=== PATIENT | male | born 2000 | race Caucasian/White ===

== ENCOUNTER 2023-06-30 08:24 | Outpatient (OUT) | payer OTHER, SELFPAY ==
[2023-06-30 08:47] LABS: Basophils Absolute Auto 0.1 10^3/uL (0.0-0.1); Eosinophils Absolute Auto 0.6 10^3/uL (0.0-0.7); Eosinophils Percent Auto 6.9 % (0.9-7.0); Hematocrit 48.6 % (42.0-54.0); Immature Granulocytes Abs Auto 0.01 10^3/uL (0.00-0.03); Immature Granulocytes Pct Auto 0.1 % (0.0-0.5); Lymphocytes Percent Auto 33.7 % (20.5-60.0); Mean Corpuscular HGB Conc 32.9 g/dL (29.9-35.2); Mean Corpuscular Hemoglobin 27.3 pg (25.9-34.0); Mean Corpuscular Volume 82.8 fL (80.0-94.0); Monocytes Absolute Auto 0.6 10^3/uL (0.3-0.8); Monocytes Percent Auto 6.7 % (1.7-12.0); Neutrophils Absolute Auto 4.6 10^3/uL (1.4-6.5); Neutrophils Percent Auto 51.6 % (43.0-75.0); Platelet Count 309 10^3/uL (150-450); Red Blood Count 5.87 10^6/uL (4.70-6.10); Red Cell Distribution Width 13.2 % (11.0-15.0); White Blood Count 8.9 10^3/uL (4.0-11.0)
[2023-06-30 08:55] LABS: Bilirubin Urine NEGATIVE (NEGATIVE); Blood Urine NEGATIVE (NEGATIVE); Clarity Urine CLEAR (CLEAR); Color Urine YELLOW (YELLOW); Glucose Urine UA NEGATIVE (NEGATIVE); Ketones Urine NEGATIVE (NEGATIVE); Leukocyte Esterase Urine NEGATIVE (NEGATIVE); Nitrite Urine NEGATIVE (NEGATIVE); Protein Urine NEGATIVE (NEG/TRACE); Specific Gravity Urine >=1.030 (1.005-1.025); Urobilinogen Urine 0.2 EU/dL (0.2-1.0); pH Urine 5.5 (5.0-9.0)
[2023-06-30 09:33] LABS: Alanine Aminotransferase 128 U/L (16-63); Albumin Globulin Ratio 1.1; Albumin Level 4.2 g/dL (3.4-5.0); Alkaline Phosphatase 89 U/L (46-116); Anion Gap 11.1; Aspartate Amino Transferase 59 U/L (15-37); BUN Creatinine Ratio 11.1; Bilirubin Total 0.7 mg/dL (0.2-1.0); Calcium 9.1 mg/dL (8.5-10.1); Carbon Dioxide 29.8 mmol/L (21.0-32.0); Chloride 101 mmol/L (98-107); Estimated GFR (African America >60 (>=60); Estimated GFR (Non-African Ame >60 (>=60); Globulin 3.9 g/dL; Glucose 89 mg/dL (74-106); Potassium 3.9 mmol/L (3.5-5.1); Sodium 138 mmol/L (136-145); Thyroid Stimulating Hormone 0.833 uIU/mL (0.358-3.740); Total Protein 8.1 g/dL (6.4-8.2)
[2023-06-30 09:41] LABS: Free T4 1.08 ng/dL (0.76-1.46)
[2023-07-01 04:08] LABS: Triiodothyronine (T3) 137 ng/dL (71-180)
[2023-07-01 16:09] LABS: Thyroglobulin Antibody <1.0 IU/mL (0.0-0.9); Thyroid Peroxidase (TPO) Ab 14 IU/mL (0-34)
== END 2023-06-30 08:25 | disposition home or self-care (01) ==
PROVIDERS: PCP Family Medicine; Visit Provider Family Medicine
DX: R31.9 Hematuria, unspecified (principal); R53.83 Other fatigue; R94.6 Abnormal results of thyroid function studies
CPT/HCPCS: 36415; 80053; 81003; 84439; 84443; 84480; 85025; 87086

== ENCOUNTER 2023-07-17 10:38 | Outpatient (OUT) | payer OTHER, SELFPAY ==
--- NOTE | 2023-07-17 10:42 | US_ITS ---
The [address] [address] Patient Name: ELIGIO NOVA MRN: [id number] date: 2000 Sex: M Assigned Patient Location: US Current Patient Location: US Accession/Order Number: [id number] Exam Date: 07/17/2023 10:45 Report Date: 07/17/2023 11:40 At the request of: PIPE VERMA Procedure: US right upper quadrant EXAM: US right upper quadrant HISTORY: . Abnormal Blood Level Findings R79.89 . COMPARISON: None. TECHNIQUE: Grayscale and color imaging was performed FINDINGS: The pancreas appears normal. Scanning of the liver demonstrates mild increased echogenicity of liver consistent with fatty infiltration of liver. Color-flow is noted in the portal and hepatic veins. The gallbladder appears normal. Common bile duct measures 2 mm. Right kidney measures 11.4 x 5.7 x 5.7 cm. No solid renal cortical masses or hydronephrosis is noted. No fluid is noted in the right upper quadrant. US/US right upper quadrant IMPRESSION: 1. Increased echogenicity of liver consistent with fatty infiltration of liver. 2. The remainder of the right upper quadrant is unremarkable. Electronically authenticated by: PIPE ALBERTO Date: 07/17/2023 11:40
== END 2023-07-17 10:39 | disposition home or self-care (01) ==
LOC: US 10:38
PROVIDERS: PCP Family Medicine; Visit Provider Family Medicine
DX: R79.89 Other specified abnormal findings of blood chemistry (principal)
CPT/HCPCS: 76705

== ENCOUNTER 2024-03-27 14:35 | Outpatient (OUT) | payer OTHER, SELFPAY ==
--- NOTE | 2024-03-27 14:41 | US_ITS ---
The [address] [address] Patient Name: ELIGIO NOVA MRN: [id number] date: 2000 Sex: M Assigned Patient Location: US Current Patient Location: Accession/Order Number: [id number] Exam Date: 03/27/2024 14:45 Report Date: 03/30/2024 09:22 At the request of: FABY DAVIS Procedure: US soft tissue head and neck EXAM: US soft tissue head and neck HISTORY: Postauricular lymphadenopathy R59.0 ; lumps posterior neck, behind left ear COMPARISON: None. TECHNIQUE: Percutaneous ultrasound in area of concern. FINDINGS: Ultrasound evaluation posterior to the left ear demonstrates several lymph nodes with largest 13 x 6 x 5 mm. Fatty hilum is maintained within the visible nodes. US/US soft tissue head and neck IMPRESSION: 1. Palpable lumps correspond to several lymph nodes. While these are not overtly suspicious, follow-up is recommended. Electronically authenticated by: POOJA CUMMINGS Date: 03/30/2024 09:22
== END 2024-03-27 14:36 | disposition home or self-care (01) ==
LOC: US 14:35
PROVIDERS: PCP Family Medicine; Visit Provider Nurse Practitioner Family
DX: R59.0 Localized enlarged lymph nodes (principal)
CPT/HCPCS: 76536

== ENCOUNTER 2024-04-28 14:32 | Outpatient (OUT) | payer OTHER, SELFPAY ==
--- OUTSIDE RECORDS SUMMARY | 2024-04-28 14:55 | XMS_ITS | CCD ---
Author Organization [facility] Inform ion Partnership [facility] Care Team Providers Care Bait Man Name Role Phone DR DAVID CARCAMO Admitting Unavailable DR DAVID CARCAMO Consulting Unavailable DR DAVID CARCAMO Attending Unavailable [facility] [place] URB[place] Primary Care Unavailable MADONNA BRANNON Consulting Unavailable Dannie Chavarria Unavailable Zeferino Galan Attending Unavailable Zeferino Galan Admitting Unavailable Allergies Allergy Classification Reported Allergen(s) Allergy Type Date of Onset Reaction(s) Facility (4 sources) Seasonal allergy Propensity to adverse reactions cold like sx [employer] Other Medications Current Medications Medication Drug Class(es) Dates Sig (Normalized) Sig (Original) [id number] 200 actuat albuterol 0.09 mg/actuat metered dose inhaler (4 sources) beta2-Adrenergic Agonist Start: 06-03-2023 Albuterol Sulfate HFA 108 (90 Base) MCG/ACT 2 inhalations Inhalation q4 hrs prn Jun, Active Start: 06-03-2023 Albuterol Sulf ate HFA 108 (90 Base) MCG/ACT 2 inhalations Inhalation q4 hrs prn Jun, Active amoxicillin 875 mg / clavulanate 125 mg oral tablet (4 sources) Penicillin-class Antibacterial Start: 06-03-2023 take 1 tablet by mouth twice daily at mealtime Amoxicillin-Pot Clavulanate 875-125 MG 1 tablet Orally bid with food for 10 days Jun, Active fluticasone propionate 0.05 mg/actuat metered dose nasal spray (2 sources) Corticosteroid Start: 07-14-2023 take 2 spray(s) nasal route once daily Fluticasone Propionate 50 MCG/ACT 2 sprays each nostril Nasally Once a day for 30 days Jul, Active Problems Problem Classification Problem Date Documented Da te Episodic/Chronic Anxiety disorders (5 sources) Mixed anxiety and depressive disorder; Translations: [Other specified anxiety disorders] Chronic Asthma (2 sources) Unspecified asthma, uncomplicated; Translations: [UNSPECIFIED ASTHMA UNCOMPLICATED] Onset: 04-19-2021 Chronic Genitourinary symptoms and ill-defined conditions (1 source) Hematuria, unspecified Episodic Lymphadenitis (1 source) Localized enlarged lymph nodes Episodic Malaise and fatigue (1 source) Other fatigue Episodic Other lower respiratory disease (3 sources) Pleurodynia; Translations: [PLEURODYNIA] Onset: 04-18-2021 Episodic Other nervous system disorders (4 sources) Chronic pain; Translations: [Other chronic pain] Chronic Other nutritional; endocrine; and metabolic disorders (1 source) Abnormal weight gain Episodic Other screening for suspected conditions (not mental disorders or infectious disease) (2 sources) Abnormal results of thyroid function studies; Translations: [Other specified abnormal findings of blood chemistry] Episodic Pleurisy; pneumothorax; pulmonary collapse (1 source) Pleurisy; Translations: [PLEURISY] Onset: 04-19-2021 Episodic Residual codes; unclassified (4 sources) Insomnia; Translations: [Insomnia, unspecified] Episodic Residual codes; unclassified (1 source) Insomnia, unspecified Episodic Unclassified (1 source) CONTACT W/AND (SUSP) EXPOS COVID-19; Translations: [CONTACT W/AND (SUSP) EXPOS COVID-19] Onset: 04-19-2021 Unclassified (1 source) Transsexualism; 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 Performed By: #### C MP #### [address] Bilirubin [Mass/Vol] 0.8 mg/dL Normal 0.3-1.0 [facility] Comment on above: Order Comment: 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 Performed By: #### C MP #### [place] [address] [place] Calcium [Mass/Vol] 9.1 mg/dL Normal 8.6-10.3 [facility] Comment on above: Order Comment: 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 Performed By: #### C MP #### [place] [address] [place] Chloride [Moles/Vol] 105 mmol/L Normal 98-107 [facility] Comment on above: Order Comment: 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 Performed By: #### C MP #### [address] CO2 [Moles/Vol] 27.5 mmol/L Normal 21.0-31.0 [facility] Comment on above: Order Comment: 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 Performed By: #### C MP #### [address] Creatinine [Mass/Vol] 0.84 mg/dL Normal 0.70-1.30 [facility] Comment on above: Order Comment: 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 Performed By: #### C MP #### [address] GFR/1.73 sq M.predicted MDRD (S/P/Bld) [Vol rate/Area] mL/min/{1.73_m2} Normal [facility] Comment on above: Order Comment: 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 Glucose of more than 200 mg/dL in a nonstressed, ambulatory subject supports the diagnosis of Diabetes Mellitus. 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 Performed By: #### C MP #### [address] Urea nitrogen [Mass/Vol] 13 mg/dL Normal 7-25 [facility] Comment on above: Order Comment: 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 Performed By: #### C MP #### [address] AMYLASEon 04-18-2021 Amylase [Catalytic activity/Vol] 44 U/L Normal 31-110 [facility] Comment on above: Performed By: #### A MIRTHA WISDOM CMADM #### [facility] [address] [address] Glynn Avila CARDIAC DAVID ADMITon 021 CK [Catalytic activity/Vol] 92 U/L Normal 55-170 [facility] Comment on above: Performed By: #### A MIRTHA WISDOM CMADM #### [facility] [address] [address] Glynn Avila CK.MB [Mass/Vol] ng/mL Normal <=2.37 [facility] Comment on above: Performed By: #### A MIRTHA WISDOM CMADM #### [facility] [address] [address] Glynn Margarita HSTROP <4.0 Normal 4.0-42.2 [facility] Comment on above: Result Comment: CUT- OFF POINTS HAVE BEEN ESTABLISHED BASED ON THE FOURTH UNIVERSAL DEFINITIONS OF MYOCARDIAL INFARCTION. THE UPPER REFERENCE LIMIT (URL) OF TROPONIN, DEFINED THE 99TH PERCENTILE OF cTnI DISTRIBUTION IN A REFERENCE POPULATION, HAS BEEN CONFIRMED THE DECISION THRESHOLD FOR [place] DIAGNOSIS. Performed By: #### A MIRTHA WISDOM CMADM #### [facility] [address] [place] [address] Glynn Margarita CORY 37.0 ng/mL Normal <=121.0 [facility] Comment on above: Performed By: #### A MIRTHA WISDOM CMADM #### [facility] [address] [place] [address] Glynn Margarita CBC AUTO DIFFon 04-18-2021 BASO # 0.1 103/ul Normal 0.0-0.1 [facility] Comment on above: Performed By: #### C BC #### [facility] [address] [place] [address] Glynn Margarita Basophils/100 WBC (Bld) 0.8 % Normal 0.2-2.0 [facility] Comment on above: Performed By: #### C BC #### [facility] [address] [place] [address] Glynn Margarita EO # 0.4 103/ul Normal 0.0-0.7 [facility] Comment on above: Performed By: #### C BC #### [facility] [address] [place] [address] Glynn Margarita Eosinophils/100 WBC (Bld) 4.3 % Normal 0.9-7.0 [facility] Comment on above: Performed By: #### C BC #### [facility] [address] [place] [address] Glynn Margarita Erythrocyte distribution width (RBC) [Ratio] 13.0 % Normal 11.0-15.0 [facility] Comment on above: Performed By: #### C BC #### [facility] [address] [place] [address] Glynn Margarita Hematocrit (Bld) [Volume fraction] 47.6 % Normal 42.0-54.0 [facility] Comment on above: Performed By: #### C BC #### [facility] [address] [place] [address] Glynnmando Avila Hemoglobin (Bld) [Mass/Vol] 15.9 g/dL Normal 14.0-18.0 [facility] Comment on above: Performed By: #### C BC #### [facility] [address] [place] [address] Glynnmando Avila IG # 0.02 10e3/ul Normal 0.00-0.03 [facility] Comment on above: Performed By: #### C BC #### [facility] [address] [place] [address] Glynn Margarita IG % 0.2 % Normal 0.0-0.5 [facility] Comment on above: Performed By: #### C BC #### [facility] [address] [place] [address] Glynn Margarita LYMPH # 1.9 103/ul Normal 1.2-3.8 [facility] Comment on above: Performed By: #### C BC #### [facility] [address] [place] [address] Glynn Avila Lymphocytes/100 WBC (Bld) 20.7 % Normal 20.5-60.0 [facility] Comment on above: Performed By: #### C BC #### [facility] [address] [place] [address] Glynn Avila MANUAL DIFF REQ NO Normal [facility] Comment on above: Performed By: #### C BC #### [facility] [address] [place] [address] Glynnmando Avila MCH (RBC) [Entitic mass] 28.0 pg Normal 25.9-34.0 [facility] Comment on above: Performed By: #### C BC #### [facility] [address] [place] [address] Glynnmando Avila MCHC (RBC) [Mass/Vol] 33.4 g/dL Normal 29.9-35.2 [facility] Comment on above: Performed By: #### C BC #### [facility] [address] [place] [address] Glynnmando Burrellen MCV (RBC) [Entitic vol] 83.8 fL Normal 80.0-94.0 [facility] Comment on above: Performed By: #### C BC #### [facility] [address] [place], [place] [id number] Glynn Avila MONO # 0.6 103/ul Normal 0.3-0.8 [facility] Comment on above: Performed By: #### C BC #### [facility] [address] [place], [place] [id number] Glynn Margarita Monocytes/100 WBC (Bld) 6.9 % Normal 1.7-12.0 [facility] Comment on above: Performed By: #### C BC #### [facility] [address] [place] [address] Glynn Margarita NEUT # 6.2 103/ul Normal 1.4-6.5 [facility] Comment on above: Performed By: #### C BC #### [facility] [address] [place] [address] Glynn Burrellen Neutrophils/100 WBC (Bld) 67.1 % Normal 43.0-75.0 [facility] Comment on above: Performed By: #### C BC #### [facility] [address] [place], [place] [id number] Glynnmando Burrellen Platelet mean volume (Bld) [Entitic vol] 9.7 fL Normal 9.5-13.5 [facility] Comment on above: Performed By: #### C BC #### [facility] [address] [place], [place] [id number] Glynn Margarita PLT 314 103/ul Normal 150-450 [facility] Comment on above: Performed By: #### C BC #### [facility] [address] [place], [place] [id number] Glynn Margarita RBC 5.68 106/ul Normal 4.70-6.10 [facility] Comment on above: Performed By: #### C BC #### [facility] [address] [place], [place] [id number] Glynn Margarita WBC 9.2 103/ul Normal 4.0-11.0 [facility] Comment on above: Performed By: #### C BC #### [facility] [address] [place] [address] Glynn Avila CULTURE BLOODon 04-18-2021 Microscopic examination of blood, culture Culture Observations: NO GROWTH AT 5 DAYS. Normal [facility] Comment on above: Performed By: #### B [id number] #### [facility] [address] [place] [address] Glynn Avila [facility]03 SARS-CoV-2 (COVID-19) RNA LUDIN+probe Ql (Unsp spec) Not detected Normal NOT DETECTED [facility] Comment on above: Result Comment: This test is not yet approved or cleared by the [place] FDA. When there are no FDA-approved or cleared tests available, and other criteria are met, FDA can make tests available under an emergency access mechanism called an Emergency Use Authorization (EUA). The EUA for this test is supported by the Practice Management Consultant of Health and Human Service's (HHS's) declaration that circumstances exist to justify the emergency use of in vitro diagnostics for the detection and/or diagnosis of the virus that causes COVID-19. This EUA will remain in effect (meaning this test can be used) for the duration of the COVID-19 declaration justifying emergency of IVDs, unless it is terminated or revoked by FDA (after which the test may no longer be used). When diagnostic testing is negative, the possibility of a false negative should be considered in the context of a patient's recent exposures and the presence of clinical signs and symptoms consistent with SARS-CoV-2. Performed By: #### C VDTBH #### [facility] [address] [place] [address] Glynn Avila D-DIMERon 04-18-2021 D-DIMER 0.26 mg/L FEU Normal 0.19-0.50 [facility] Comment on above: Performed By: #### C VDAG #### [facility] [address] [place] [address] Glynn Avila D-DIMER COMMENTS SEE BELOW Normal [facility] Comment on above: Result Comment: Incr eases in D-Dimer concentration observed with thromboembolic events can be variable due to localization, size, and age of the thrombus. Therefore, a thromboembolic event cannot be diagnosed with certainty on the basis of the reference range. D-Dimers may also be elevated for a variety of disorders including: advanced age, , coronary disease, cancer, liver disease, infection, inflammation, hematoma, DIC, trauma, post-surgery, diabetes, thrombolytic or anticoagulant therapy, stress, and generalized hospitalization. Performed By: #### C VDAG #### [facility] [address] [place] [address] Glynn Margarita LACTATE/LACTIC ACIDon 2020 Lactate [Moles/Vol] 1.6 mmol/L Normal 0.7-2.0 [facility] Comment on above: Performed By: #### L ACT #### [facility] [address] [place] [address] Glynn Margarita LIPASEon 04-18-2021 Lipase [Catalytic activity/Vol] 92.0 U/L Normal 23.0-300.0 [facility] Comment on above: Performed By: #### A MY, LIPA, CMADM #### [facility] [address] [place], [place] [id number] Glynn Margarita PROF 14(COMP METB)on 021 Albumin [Mass/Vol] 4.3 g/dL Normal 3.5-5.0 [facility] Comment on above: Performed By: #### C MP #### [facility] [address] [place], [place] [id number] Glynn Margarita Albumin/Globulin [Mass ratio] 1.3 {ratio} Normal [facility] Comment on above: Performed By: #### C MP #### [facility] [address] [place], [place] [id number] Glynn Margarita ALP [Catalytic activity/Vol] 91 U/L Normal 38-126 [facility] Comment on above: Performed By: #### C MP #### [facility] [address] [place] [address] Glynn Margarita ALT [Catalytic activity/Vol] 149 U/L Critically high 21-72 [facility] Comment on above: Performed By: #### C MP #### [facility] [address] [address] Glynn Margarita Anion gap [Moles/Vol] 14.3 mmol/L Normal [facility] Comment on above: Performed By: #### C MP #### [facility] [address] [address] Glynn Margarita AST [Catalytic activity/Vol] 62 U/L Critically high 17-59 [facility] Comment on above: Performed By: #### C MP #### [facility] [address] [id number] Glynn Margarita Bilirubin [Mass/Vol] 0.7 mg/dL Normal 0.2-1.3 [facility] Comment on above: Performed By: #### C MP #### [facility] [address] [place] [address] Glynn Margarita Calcium [Mass/Vol] 9.2 mg/dL Normal 8.4-10.2 [facility] Comment on above: Performed By: #### C MP #### [facility] [address] [place] [address] Glynn Margarita Chloride [Moles/Vol] 104 mmol/L Normal 98-107 [facility] Comment on above: Performed By: #### C MP #### [facility] [address] [place] [address] Glynn Margarita CO2 [Moles/Vol] 29.4 mmol/L Normal 22.0-30.0 [facility] Comment on above: Performed By: #### C MP #### [facility] [address] [place] [address] Glynn Margarita Creatinine [Mass/Vol] 1.00 mg/dL Normal 0.66-1.25 [facility] Comment on above: Performed By: #### C MP #### [facility] [address] [place], [place] [id number] Glynn Margarita EGFR-AF HUNGARIAN >60 Normal >=60 [facility] Comment on above: Performed By: #### C MP #### [facility] [address] [place], [place] [id number] Glynn Margarita EGFR-NON AF HUNGARIAN >60 Normal >=60 [facility] Comment on above: Performed By: #### C MP #### [facility] [address] [place], [place] [address] Glynn Margarita Globulin (S) [Mass/Vol] 3.4 g/dL Normal [facility] Comment on above: Performed By: #### C MP #### [facility] [address] [place], [place] [address] Glynn Margarita Glucose [Mass/Vol] 92 mg/dL Normal 74-106 [facility] Comment on above: Performed By: #### C MP #### [facility] [address] [place], [place] [address] Glynn Margarita Potassium [Moles/Vol] 3.7 mmol/L Normal 3.4-5.0 [facility] Comment on above: Performed By: #### C MP #### [facility] [address] [place], [place] [address] Glynn Margarita Protein [Mass/Vol] 7.7 g/dL Normal 6.1-8.2 [facility] Comment on above: Performed By: #### C MP #### [facility] [address] [place], [place] [address] Glynn Margarita Sodium [Moles/Vol] 144 mmol/L Normal 137-145 [facility] Comment on above: Performed By: #### C MP #### [facility] [address] [place], [place] [address] Glynn Margarita Urea nitrogen [Mass/Vol] 11.0 mg/dL Normal 9.0-20.0 [facility] Comment on above: Performed By: #### C MP #### [facility] [address] [place], [place] [address] Glynn Margarita Urea nitrogen/Creatinine [Mass ratio] 11.0 mg/mg Normal [facility] Comment on above: Performed By: #### C MP #### [facility] [address] [place] [address] Glynn Margarita RAPID COVID-19 ANTIGENon EUA Statement SEE BELOW Normal [facility] Comment on above: Result Comment: This test has not been FDA cleared or approved, but has been authorized by the FDA under an Emergency Use Authorization (EUA) for use by authorized laboratories certified under CLIA that meet the requirements to perform moderate or high complexity testing. This test has been authorized only for the detection of proteins from SARS-CoV-2, not for any other viruses or pathogens. The emergency use of this test is authorized for the duration of the declaration that circumstances exist justifying the authorization of emergency use of in vitro diagnostic tests for detection and/or diagnosis of Covid-19 under section 564(b)(1) of the Act, 21 U.S.C. 360bbb-3(b)(1), unless the declaration is terminated or authorization is revoked sooner. Performed By: #### C VDAG #### [facility] [address] [place] [address] Glynn Avila SARS-CoV-2 (COVID-19) RNA LUDIN+probe Ql (Unsp spec) Negative Normal NEGATIVE [facility] Comment on above: Result Comment: Nega tive results are presumptive. They do not preclude infection and should not be used as the sole basis for treatment decisions. Additional confirmatory testing by a molecular method should be considered. Performed By: #### C VDAG #### [facility] [address] [place] [address] Glynn Avila Vital Signs Date Time Vital Sign Value Performing Clinician Facility 06-03-2023 13:20-0400 Body height 166.37 cm Dannie Chavarria Other [employer] Other 06-03-2023 13:20-0400 Body mass index (BMI) [Ratio] 29.66 kg/m2 Dannie Chavarria Other [employer] Other 06-03-2023 13:20-0400 Body temperature 98.5 [degF] Dannie Chavarria Other [employer] Other 06-03-2023 13:20-0400 Body weight 82.1 kg Dannie Chavarria Other [employer] Other 06-03-2023 13:20-0400 Diastolic blood pressure 78 mm[Hg] Dannie Deon Other [employer] Other 06-03-2023 13:20-0400 Respiratory rate 18 /min Dannie Deon Other [employer] Other 06-03-2023 13:20-0400 SaO2% (BldA) [Mass fraction] 98 % Dannie Chavarria Other [employer] Other 06-03-2023 13:20-0400 Systolic blood pressure 120 mm[Hg] Dannie Chavarria Other [employer] Other Encounters Encounter Date Encounter Type Care Provider Facility Start: 01-05-2024 End: 01-05-2024 ambulatory Zeferino Galan Facility:[facility] Start: 07-17-2023 End: 07-17-2023 ambulatory Dannie Chavarria Other [employer] Other Start: 07-17-2023 [address] Chavar[address] [facility] [place] Start: 07-14-2023 End: 07-14-2023 ambulatory Dannie Chavarria Other [employer] Other Start: 07-14-2023 Telephone [address] Chavarria [facility] [place] Start: 07-01-2023 End: 07-01-2023 ambulatory Dannie Chavarria Other [employer] Other Start: 07-01-2023 Telephone [address]annie Chavarria [facility] [place] Start: 06-03-2023 End: 06-03-2023 ambulatory Dannie Chavarria Other [employer] Other Start: 06-03-2023 Office outpatient ne w [address] [facility] [place] Start: 04-18-2021 End: 04-18-[address] DAVID CARCAMO Facility:[facility] Payers Date Payer Category Payer Medicaid [id number] 2. [id number] 1977 Unknown [id number] 1960 Unknown [id number] Social History Date Type Detail Facility Unknown if ever smoked [employer] Other Sex Assigned At Sex Assigned At Bir th [employer] Other Evaluation note 07-01-2023 Note Date & Type Note Facility 07-01-2023 Evaluation note Encounter Date Diagnosis Assessment Notes Jun, Elevated liver function tests (ICD-10 - R79.89) [employer] Other Evaluation note 06-03-2023 Note Date & Type Note Facility 06-03-2023 Evaluation note Encounter Date Diagnosis Assessment Notes Jun, Fatigue (ICD-10 - R53.83) Jun, Asthma (ICD-10 - J45.909) He voices that he had pleurisy and was seen he thinks at the ER for evaluation and they provided him with medication. He voices that eventually the pain resolved and it has not come back since. He did lose his inhaler and would like to have this available if needed. He voices that he has a history of asthma. I did recommend that he use the inhaler daily until he feels better due to the sounds of his lungs on exam today. Wheeze was heard on auscultation today. He voices that he can feel this, he states that he is at the tail end of a cold. I am going to treat him with an antibiotic that will also cover this and the lymph nodes in his neck. I asked him to use his Albuterol breathing treatments that he has at home. He does not need a refill on this medicine. Jun, Abnormal thyroid blood test (ICD-10 - R94.6) In 2017 his TSH was abnormal. I did recommend that he have thyroid lab repeated. Jun, Lymphadenopat hy, cervical (ICD-10 - R59.0) I would like to treat him with an antibiotic to see if these resolve. Guidance is given on how to take the medication. Medicine can cause loose stools. If he develops severe diarrhea then he is to let me know right away and stop the medication. Eat yogurt in between doses to help prevent GI upset. Jun, Anxiety and depression (ICD-10 - F41.8) He voices that he is not really looking for a job right now because he has no motivation. He has been stuck in his home for the last four months because of his autistic brother who is aggressive. He feels he may have ADHD in addition to anxiety and depression. He would like to see a counselor for evaluation to find tools that he can use to help deal with his issues. He voices that he has anger issues that are unresolved that he feels he needs to work through. His dad is supportive but he does not live with him, his dad would like him to get his life going . He would like to have a referral for [facility]. I want him to see them and discuss his issues and whether or not they feel he needs medication. He is in agreement to this and a referral is provided. He enjoys kinsey and his dream job would be to become a [employer] personality. Jun, Insomnia (ICD-10 - G47.00) He voices that he has not been able to sleep well because he has had to be awake and vigilant to be sure his autistic brother does not hurt anyone during the night. He feels things are getting better. Jun, Weight gain (ICD-10 - R63.5) Jun, Hematuria (ICD-10 - R31.9) for lab order only [employer] Other Clinical Note 04-18-2021 Note Date & Type Note Facility 04-18-2021 Note PROCEDURE: XR CHEST 1 V REASON FOR STUDY/CLINICAL HISTORY: CHEST PAIN, UNSPECIFIED. COMPARISON STUDY: None available at time of dictation. TECHNIQUE: Single view(s) of the chest presented for interpretation. FINDINGS: No acute cardiopulmonary process. Very slight areas of atelectasis at the right infrahilar region and lateral aspect of the lung bases. Normal cardiomediastinal silhouette. No focal consolidation, edema, or effusion. No pneumothorax. No acute appearing focal significant bony abnormality. IMPRESSION: Slight bibasilar atelectatic changes only minimally more pronounced on the right. No large effusion, dense consolidation, or pneumothorax. Electronically authenticated by: MADONNA BRANNON Date: 2021-04-17 23:57 [facility] Evaluation note Note Date & Type Note Facility Evaluation note No Information [facility] [email or web address] Other History general Narrative - Reported Note Date & Type Note Facility History general Narrative - Reported Type Medical History asthma dx at a young age Hospitalization History pneumonia from a sthma - when he was a toddler [employer] Other Reason for referral (narrative) Note Date & Type Note Facility Reason for referral (narrative) Diagnosis 1 Anxiety and depressi on (F41.8) Referral Organization [facility] Referring Provider First Name Dannie Referring Provider Last Name Deon Referring Provider Specialty Family Practice Referred Organization [facility] [place] Referred Address [address] [place], [place],[address] Referred Provider Specialty Psychiatry Referral Priority Routine General Notes Karyna Dumont 06/03/2023 02:13:58 PM > [facility] faxed to [facility]. pt understands he will be contacted to schedule his initial appt. referral closed as it is for psychiatry/counseling and will not be followed. [employer] Other Reason for visit Narrative Note Date & Type Note Facility Reason for visit Narrative check up, dis cuss multiple issues, see treatment plan for further information [facility] Other Summary Purpose Family History No Family History Records FoundNo Family History Records Found Advance Directives No Advanced Directives Records FoundNo Advanced Directives Records Found Additional Source Comments (unrecognized sect ion and content) No Status Records FoundNo Status Records Found INFORMATION SOURCE (unrecogn ized section and content) DATE CREATED AUTHOR 04/24/2021 [facility] DATE CREATED AUTHOR AUTHOR'S LUCAS BROWN 01/06/2024 [facility] REASON FOR VISIT (unrecogniz ed section and content) ClinicalClinicalClinical FOR RECORDS PERTAINING TO PATIENTS WHO ARE OR HAVE BEEN ENROLLED IN A CHEMICAL DEPENDENCY/SUBSTANCEABUSE PROGRAM, SOME INFORMATION MAY BE OMITTED. This clinical summary was aggregated from multiple sources. Caution should be exercised in using it in the provision of clinical care. This summary normalizes information from multiple sources, and as a consequence, information in this document may materially change the coding, format and clinical context of patient data. In addition, data may be omitted in some cases. CLINICAL DECISIONS SHOULD BE BASED ON THE PRIMARY CLINICAL RECORDS. [facility]. provides no warranty or guarantee of the accuracy or completeness of information in this document.
[2024-04-28 15:53] LABS: Alanine Aminotransferase 82 U/L (16-63); Albumin Globulin Ratio 1.1; Albumin Level 3.9 g/dL (3.4-5.0); Alkaline Phosphatase 90 U/L (46-116); Anion Gap 15.3; Aspartate Amino Transferase 50 U/L (15-37); BUN Creatinine Ratio 16.5; Bilirubin Total 0.5 mg/dL (0.2-1.0); Calcium 9.2 mg/dL (8.5-10.1); Carbon Dioxide 23.9 mmol/L (21.0-32.0); Chloride 101 mmol/L (98-107); Estimated GFR (African America >60 (>=60); Estimated GFR (Non-African Ame >60 (>=60); Globulin 3.7 g/dL; Glucose 98 mg/dL (74-106); Potassium 4.2 mmol/L (3.5-5.1); Sodium 136 mmol/L (136-145); Total Protein 7.6 g/dL (6.4-8.2)
[2024-04-29 04:08] LABS: Estradiol 51.6 pg/mL (7.6-42.6)
== END 2024-04-28 14:33 | disposition home or self-care (01) ==
LOC: LAB 14:33
PROVIDERS: PCP Family Medicine
DX: F64.0 Transsexualism (principal)
CPT/HCPCS: 36415; 80053; 82670

== ENCOUNTER 2024-06-14 16:01 | Emergency (ER) | payer OTHER, SELFPAY ==
[2024-06-14 16:04] VITALS: BP 135/82; PULSE 82; TEMP 37; O2SAT 97; BMI 31.8
--- NOTE | 2024-06-14 16:10 | ED_ITS ---
HPI HPI - General Adult General Chief complaint: Extremity Injury, Upper Stated complaint: UPPER EXTREMITY INJURY Time Seen by Provider: 06/14/24 16:02 Source: patient Mode of arrival: walk-in Limitations: no limitations History of Present Illness HPI narrative: Patient is a 24-year-old male who presents to the emergency department for pain in the right hand and wrist. Patient states 2 weeks ago he fell on an outstretched fist and had some pain to the hand and wrist. He states the pain is not improving the way he thought it would and he continues to have pain over the metacarpals of the right hand as well as the distal right wrist. No medications prior to arrival. No other associated injuries. Related Data Home Medications ?Medication ?Instructions ?Recorded ?Confirmed escitalopram oxalate 20 mg tablet 20 mg PO DAILY 06/14/24 06/14/24 estradiol 1 mg tablet 2 mg PO BID 06/14/24 06/14/24 lamotrigine 100 mg tablet 150 mg PO DAILY 06/14/24 06/14/24 lurasidone 40 mg tablet 40 mg PO DAILY 06/14/24 06/14/24 spironolactone 25 mg tablet 25 mg PO BID 06/14/24 06/14/24 trazodone 50 mg tablet 50 mg PO PRN PRN insomnia 06/14/24 06/14/24 Previous Rx's ?Medication ?Instructions ?Recorded ketorolac 10 mg tablet 10 mg PO TID PRN pain #10 tabs 06/14/24 Allergies Allergy/AdvReac Type Severity Reaction Status Date / Time No Known Drug Allergies Allergy Verified 06/14/24 16:06 Opioid HPI Opioid Management Most Recent Opioid Data: Last Pain Scale 6 06/14/24 16:49 Last MAR Pain Assessment 06/14/24 16:44 Review of Systems ROS Constitutional Denies: fever or chills Ears, nose, mouth, and throat Denies: throat pain or nasal congestion Respiratory Denies: shortness of breath Gastrointestinal Denies: nausea or vomiting Musculoskeletal Reports: extremity pain Integumentary/Breast Denies: rash Hematologic/Lymphatic Denies: easy bruising or easy bleeding Exam Narrative Exam Narrative: Gen.: Awake, alert, in no distress Head: Normocephalic, atraumatic ENT: Moist mucous membranes Respiratory: No respiratory distress Extremities: Patient with normal flexion and extension at the right wrist, diffuse minimal edema noted over the metacarpals of the right hand. No tenderness or swelling of the fingers of the right hand. 2+ right radial pulse. 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 No obvious deformity Psych: Normal mood and affect Neuro: No focal neuro deficit Skin: Warm, dry, intact Constitutional Vital Signs, click to edit/add: Last Vital Signs Temp 98.6 F 06/14/24 16:04 Pulse 82 06/14/24 16:04 Resp 18 06/14/24 16:04 BP 135/82 06/14/24 16:04 Pulse Ox 97 06/14/24 16:04 O2 Del Method Room Air 06/14/24 16:04 Course Vital Signs Vital signs: Vital Signs Temperature 98.6 F 06/14/24 16:04 Pulse Rate 82 06/14/24 16:04 Respiratory Rate 18 06/14/24 16:04 Blood Pressure 135/82 06/14/24 16:04 Pulse Oximetry 97 06/14/24 16:04 Oxygen Delivery Method Room Air 06/14/24 16:04 Temperature 98.6 F 06/14/24 16:04 Pulse Rate 82 06/14/24 16:04 Respiratory Rate 18 06/14/24 16:04 Blood Pressure 135/82 06/14/24 16:04 Pulse Oximetry 97 06/14/24 16:04 Oxygen Delivery Method Room Air 06/14/24 16:04 Medical Decision Making MDM Narrative Medical decision making narrative: Medicated with Toradol, x-rays show a possible nondisplaced fracture at the base of the third metacarpal on 1 view only, read by the radiologist. Patient placed in a metal forearm splint and Anatoly wrap as the injury is 2 weeks old and there is no displaced fracture or obvious fracture noted. He was given an appointment and referral for orthopedics. He is placed on NSAIDs for home. Return to the emergency department times change or worsen. Patient was given these results by attending physician prior to discharge. SHARED APC VISIT, PHYSICIAN ATTESTATION: [id number] I performed a substantive part of the MDM during the patient?s E/M visit. I personally evaluated and examined the patient. I personally made or approved the documented management plan and acknowledge its risk of complications. ? Medical Records Medical records reviewed: Yes I reviewed the patient's medical records Imaging Data xr hand: Attestation: I have reviewed the pertinent imaging results. Discharge Plan Discharge Stand Alone Forms: Portal Instructions Chief Complaint: Extremity Injury, Upper Clinical Impression: Hand pain, right, Fracture of metacarpal Patient Disposition: Home, Self-Care Time of Disposition Decision: 17:41 Condition: Good Prescriptions / Home Meds: New ketorolac 10 mg tablet 10 mg PO TID PRN (Reason: pain) Qty: 10 0RF No Action escitalopram oxalate 20 mg tablet 20 mg PO DAILY estradiol 1 mg tablet 2 mg PO BID lamotrigine 100 mg tablet 150 mg PO DAILY lurasidone 40 mg tablet 40 mg PO DAILY trazodone 50 mg tablet 50 mg PO PRN PRN (Reason: insomnia) spironolactone 25 mg tablet 25 mg PO BID Print Language: Serbian Instructions: Hand Fracture (ED) Referrals: PIPE VERMA [Primary Care Provider] - 1 week Jose Jacob MD [Physician] - 06/21/24 12:00 pm
--- OUTSIDE RECORDS SUMMARY | 2024-06-14 16:17 | XMS_ITS | CCD ---
Author Organization [facility] Inform ion Partnership [facility] Care Team Providers Care Tailor Fitter Name Role Phone DR DAVID CARCAMO Admitting Unavailable DR DAVID CARCAMO Consulting Unavailable DR DAVID CARCAMO Attending Unavailable [facility] URBINA Primary Care Unavailable MADONNA BRANNON Consulting Unavailable Dannie Chavarria Unavailable Zeferino Galan Attending Unavailable Zeferino Galan Admitting Unavailable Allergies Allergy Classification Reported Allergen(s) Allergy Type Date of Onset Reaction(s) Facility (4 sources) Seasonal allergy Propensity to adverse reactions cold like sx [facility] Other Medications Current Medications Medication Drug Class(es) Dates Sig (Normalized) Sig (Original) [id number] 200 actuat albuterol 0.09 mg/actuat metered dose [...] 01-05-2024 Albumin [Mass/Vol] 4.6 g/dL Normal 3.5-5.7 [facility] Comment on above: Order Comment: 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 Performed By: #### C MP #### [address] Bilirubin [Mass/Vol] 0.8 mg/dL Normal 0.3-1.0 [facility] Comment on above: Order Comment: 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 Performed By: #### C MP #### [place] [address] [place] Calcium [Mass/Vol] 9.1 mg/dL Normal 8.6-10.3 [facility] Comment on above: Order Comment: 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 Performed By: #### C MP #### [place] [address] [place] Chloride [Moles/Vol] 105 mmol/L Normal 98-107 [facility] Comment on above: Order Comment: 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 Performed By: #### C MP #### [address] CO2 [Moles/Vol] 27.5 mmol/L Normal 21.0-31.0 [facility] Comment on above: Order Comment: 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 Performed By: #### C MP #### [address] Creatinine [Mass/Vol] 0.84 mg/dL Normal 0.70-1.30 [facility] Comment on above: Order Comment: 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 Performed By: #### C MP #### [address] GFR/1.73 sq M.predicted MDRD (S/P/Bld) [Vol rate/Area] mL/min/{1.73_m2} Normal [facility] Comment on above: Order Comment: 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 Glucose of more than 200 mg/dL in a nonstressed, ambulatory subject supports the diagnosis of Diabetes Mellitus. 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 Performed By: #### C MP #### [address] Urea nitrogen [Mass/Vol] 13 mg/dL Normal 7-25 [facility] Comment on above: Order Comment: 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 Performed By: #### C MP #### [address] AMYLASEon 04-18-2021 Amylase [Catalytic activity/Vol] 44 U/L Normal 31-110 [facility] Comment on above: Performed By: #### A MIRTHA WISDOM CMADM #### [facility] [address] [address] Glynn Avila CARDIAC DAVID ADMITon 021 CK [Catalytic activity/Vol] 92 U/L Normal 55-170 [facility] Comment on above: Performed By: #### A MIRTHA WISDOM CMADM #### [facility] [address] [address] Glynn Avila CK.MB [Mass/Vol] ng/mL Normal <=2.37 [facility] Comment on above: Performed By: #### A MIRTHA WISDOM CMADM #### [facility] [address] [address] Glynn Margarita HSTROP <4.0 Normal 4.0-42.2 [facility] Comment on above: Result Comment: CUT- OFF POINTS HAVE BEEN ESTABLISHED BASED ON THE FOURTH UNIVERSAL DEFINITIONS OF MYOCARDIAL INFARCTION. THE UPPER REFERENCE LIMIT (URL) OF TROPONIN, DEFINED THE 99TH PERCENTILE OF cTnI DISTRIBUTION IN A REFERENCE POPULATION, HAS BEEN CONFIRMED THE DECISION THRESHOLD FOR CT DIAGNOSIS. Performed By: #### A MIRTHA WISDOM CMADM #### [facility] [address] [place] [address] Glynn Margarita CORY 37.0 ng/mL Normal <=121.0 [facility] Comment on above: Performed By: #### A MIRTHA WISDOM CMADM #### [facility] [address] [place] [address] Glynn Margarita CBC AUTO DIFFon 04-18-2021 BASO # 0.1 103/ul Normal 0.0-0.1 [facility] Comment on above: Performed By: #### C BC #### [facility] [address] [place] [address] Glynn Margarita Basophils/100 WBC (Bld) 0.8 % Normal 0.2-2.0 [facility] Comment on above: Performed By: #### C BC #### [facility] [address] [place] [address] Glynn Margarita EO # 0.4 103/ul Normal 0.0-0.7 [facility] Comment on above: Performed By: #### C BC #### [facility] [address] [place] [address] Glynn Margarita Eosinophils/100 WBC (Bld) 4.3 % Normal 0.9-7.0 [facility] Comment on above: Performed By: #### C BC #### [facility] [address] [place] [address] Glynn Margarita Erythrocyte distribution width (RBC) [Ratio] 13.0 % Normal 11.0-15.0 [facility] Comment on above: Performed By: #### C BC #### [facility] [address] [place] [address] Glynn Margarita Hematocrit (Bld) [Volume fraction] 47.6 % Normal 42.0-54.0 [facility] Comment on above: Performed By: #### C BC #### [facility] [address] [place] [address] Glynnmando Avila Hemoglobin (Bld) [Mass/Vol] 15.9 g/dL Normal 14.0-18.0 [facility] Comment on above: Performed By: #### C BC #### [facility] [address] [place] [address] Glynnmando Avila IG # 0.02 10e3/ul Normal 0.00-0.03 [facility] Comment on above: Performed By: #### C BC #### [facility] [address] [place] [address] Glynn Margarita IG % 0.2 % Normal 0.0-0.5 [facility] Comment on above: Performed By: #### C BC #### [facility] [address] [place] [address] Glynn Margarita LYMPH # 1.9 103/ul Normal 1.2-3.8 [facility] Comment on above: Performed By: #### C BC #### [facility] [address] [place] [address] Glynn Avila Lymphocytes/100 WBC (Bld) 20.7 % Normal 20.5-60.0 [facility] Comment on above: Performed By: #### C BC #### [facility] [address] [place] [address] Glynn Avila MANUAL DIFF REQ NO Normal [facility] Comment on above: Performed By: #### C BC #### [facility] [address] [place] [address] Glynnmando Avila MCH (RBC) [Entitic mass] 28.0 pg Normal 25.9-34.0 [facility] Comment on above: Performed By: #### C BC #### [facility] [address] [place] [address] Glynnmando Avila MCHC (RBC) [Mass/Vol] 33.4 g/dL Normal 29.9-35.2 [facility] Comment on above: Performed By: #### C BC #### [facility] [address] [place] [address] Glynnmando Burrellen MCV (RBC) [Entitic vol] 83.8 fL Normal 80.0-94.0 [facility] Comment on above: Performed By: #### C BC #### [facility] [address] [place], [place] [address] Glynn Avila MONO # 0.6 103/ul Normal 0.3-0.8 [facility] Comment on above: Performed By: #### C BC #### [facility] [address] [place], [place] [address] Glynn Margarita Monocytes/100 WBC (Bld) 6.9 % Normal 1.7-12.0 [facility] Comment on above: Performed By: #### C BC #### [facility] [address] [place] [address] Glynn Margarita NEUT # 6.2 103/ul Normal 1.4-6.5 [facility] Comment on above: Performed By: #### C BC #### [facility] [address] [place] [address] Glynn Burrellen Neutrophils/100 WBC (Bld) 67.1 % Normal 43.0-75.0 [facility] Comment on above: Performed By: #### C BC #### [facility] [address] [place], [place] [address] Glynnmando Burrellen Platelet mean volume (Bld) [Entitic vol] 9.7 fL Normal 9.5-13.5 [facility] Comment on above: Performed By: #### C BC #### [facility] [address] [place], [place] [address] Glynn Margarita PLT 314 103/ul Normal 150-450 [facility] Comment on above: Performed By: #### C BC #### [facility] [address] [place], [place] [address] Glynn Margarita RBC 5.68 106/ul Normal 4.70-6.10 [facility] Comment on above: Performed By: #### C BC #### [facility] [address] [place], [place] [address] Glynn Margarita WBC 9.2 103/ul Normal 4.0-11.0 [facility] Comment on above: Performed By: #### C BC #### [facility] [address] [place] [address] Glynn Avila CULTURE BLOODon 04-18-2021 Microscopic examination of blood, culture Culture Observations: NO GROWTH AT 5 DAYS. Normal [facility] Comment on above: Performed By: #### B LDCX1 #### [facility] [address] [place] [address] Glynn Avila [facility]03 SARS-CoV-2 (COVID-19) RNA LUDIN+probe Ql (Unsp spec) Not detected Normal NOT DETECTED [facility] Comment on above: Result Comment: This test is not yet approved or cleared by the [place] FDA. When there are no FDA-approved or cleared tests available, and other criteria are met, FDA can make tests available under an emergency access mechanism called an Emergency Use Authorization (EUA). The EUA for this test is supported by the Backend Python Developer of Health and Human Service's (HHS's) declaration [...] SARS-CoV-2. Performed By: #### C VDTBH #### [facility] [address] [place] [address] Glynn Avila D-DIMERon 04-18-2021 D-DIMER 0.26 mg/L FEU Normal 0.19-0.50 [facility] Comment on above: Performed By: #### C VDAG #### [facility] [address] [place] [address] Glynn Avila D-DIMER COMMENTS SEE BELOW Normal [facility] Comment on above: Result Comment: Incr eases [...] hospitalization. Performed By: #### C VDAG #### [facility] [address] [place] [address] Glynn Margarita LACTATE/LACTIC ACIDon 2020 Lactate [Moles/Vol] 1.6 mmol/L Normal 0.7-2.0 [facility] Comment on above: Performed By: #### L ACT #### [facility] [address] [place] [address] Glynn Margarita LIPASEon 04-18-2021 Lipase [Catalytic activity/Vol] 92.0 U/L Normal 23.0-300.0 [facility] Comment on above: Performed By: #### A MY, LIPA, CMADM #### [facility] [address] [place], [place] [address] Glynn Margarita PROF 14(COMP METB)on 021 Albumin [Mass/Vol] 4.3 g/dL Normal 3.5-5.0 [facility] Comment on above: Performed By: #### C MP #### [facility] [address] [place], [place] [address] Glynn Margarita Albumin/Globulin [Mass ratio] 1.3 {ratio} Normal [facility] Comment on above: Performed By: #### C MP #### [facility] [address] [place], [place] [address] Glynn Margarita ALP [Catalytic activity/Vol] 91 U/L Normal 38-126 [facility] Comment on above: Performed By: #### C MP #### [facility] [address] [place] [address] Glnyn Margarita ALT [Catalytic activity/Vol] 149 U/L Critically high 21-72 [facility] Comment on above: Performed By: #### C MP #### [facility] [address] [address] Glynn Margarita Anion gap [Moles/Vol] 14.3 mmol/L Normal [facility] Comment on above: Performed By: #### C MP #### [facility] [address] [address] Glynn Margarita AST [Catalytic activity/Vol] 62 U/L Critically high 17-59 [facility] Comment on above: Performed By: #### C MP #### [facility] [address] [id number] Glynn Margarita Bilirubin [Mass/Vol] 0.7 mg/dL Normal 0.2-1.3 [facility] Comment on above: Performed By: #### C MP #### [facility] [address] [place] [address] Glynn Margarita Calcium [Mass/Vol] 9.2 mg/dL Normal 8.4-10.2 [facility] Comment on above: Performed By: #### C MP #### [facility] [address] [place] [address] Glynn Margarita Chloride [Moles/Vol] 104 mmol/L Normal 98-107 [facility] Comment on above: Performed By: #### C MP #### [facility] [address] [place] [address] Glynn Margarita CO2 [Moles/Vol] 29.4 mmol/L Normal 22.0-30.0 [facility] Comment on above: Performed By: #### C MP #### [facility] [address] [place] [address] Glynn Margarita Creatinine [Mass/Vol] 1.00 mg/dL Normal 0.66-1.25 [facility] Comment on above: Performed By: #### C MP #### [facility] [address] [place], [place] [address] Glynn Margarita EGFR-AF CENTRAL AFRICAN >60 Normal >=60 [facility] Comment on above: Performed By: #### C MP #### [facility] [address] [place], [place] [address] Glynn Margarita EGFR-NON AF CENTRAL AFRICAN >60 Normal >=60 [facility] Comment on above: Performed By: #### C MP #### [facility] [address] [place], [place] [address] Glynn Margarita Globulin (S) [Mass/Vol] 3.4 g/dL Normal [facility] Comment on above: Performed By: #### C MP #### [facility] [address] [place], [place] [address] Glynn Margarita Glucose [Mass/Vol] 92 mg/dL Normal 74-106 [facility] Comment on above: Performed By: #### C MP #### [facility] [address] [place], [place] [address] Glynn Margarita Potassium [Moles/Vol] 3.7 mmol/L Normal 3.4-5.0 [facility] Comment on above: Performed By: #### C MP #### [facility] [address] [place], [place] [address] Glynn Margarita Protein [Mass/Vol] 7.7 g/dL Normal 6.1-8.2 [facility] Comment on above: Performed By: #### C MP #### [facility] [address] [place], [place] [address] Glynn Margarita Sodium [Moles/Vol] 144 mmol/L Normal 137-145 [facility] Comment on above: Performed By: #### C MP #### [facility] [address] [place], [place] [address] Glynn Margarita Urea nitrogen [Mass/Vol] 11.0 mg/dL Normal 9.0-20.0 [facility] Comment on above: Performed By: #### C MP #### [facility] [address] [place], [place] [address] Glynn Margarita Urea nitrogen/Creatinine [Mass ratio] 11.0 mg/mg Normal [facility] Comment on above: Performed By: #### C MP #### [facility] [address] [place] [address] Glynn Margarita RAPID COVID-19 ANTIGENon EUA Statement SEE BELOW Normal [facility] Comment on above: Result Comment: This [...] sooner. Performed By: #### C VDAG #### [facility] [address] [place] [address] Glynn Avila SARS-CoV-2 (COVID-19) RNA LUDIN+probe Ql (Unsp spec) Negative Normal NEGATIVE [facility] Comment on above: Result Comment: Nega tive results are presumptive. They do not preclude infection and should not be used as the sole basis for treatment decisions. Additional confirmatory testing by a molecular method should be considered. Performed By: #### C VDAG #### [facility] [address] [place] [address] Glynn Avila Vital Signs Date Time Vital Sign Value Performing Clinician Facility 06-03-2023 13:20-0400 Body height 166.37 cm Dannie Chavarria Other [facility] Other 06-03-2023 13:20-0400 Body mass index (BMI) [Ratio] 29.66 kg/m2 Dannie Chavarria Other [facility] Other 06-03-2023 13:20-0400 Body temperature 98.5 [degF] Dannie Chavarria Other [facility] Other 06-03-2023 13:20-0400 Body weight 82.1 kg Dannie Chavarria Other [facility] Other 06-03-2023 13:20-0400 Diastolic blood pressure 78 mm[Hg] Dannie Deon Other [facility] Other 06-03-2023 13:20-0400 Respiratory rate 18 /min Dannie Deon Other [facility] Other 06-03-2023 13:20-0400 SaO2% (BldA) [Mass fraction] 98 % Dannie Chavarria Other [facility] Other 06-03-2023 13:20-0400 Systolic blood pressure 120 mm[Hg] Dannie Chavarria Other [facility] Other Encounters Encounter Date Encounter Type Care Provider Facility Start: 01-05-2024 End: 01-05-2024 ambulatory Zeferino Galan Facility:[facility] Start: 07-17-2023 End: 07-17-2023 ambulatory Dannie Chavarria Other [facility] Other Start: 07-17-2023 Telephone encounter Dannie Chavarria [facility] [place] Start: 07-14-2023 End: 07-14-2023 ambulatory Dannie Chavarria Other [facility] Other Start: 07-14-2023 Telephone encounter Dannie Chavarria [facility] [place] Start: 07-01-2023 End: 07-01-2023 ambulatory Dannie Chavarria Other [facility] Other Start: 07-01-2023 Telephone encounter Dannie Chavarria [facility] [place] Start: 06-03-2023 End: 06-03-2023 ambulatory Dannie Chavarria Other [facility] Other Start: 06-03-2023 Office outpatient ne w 30 minutes Dannie Chavarria [facility] [place] Start: 04-18-2021 End: 04-18-[address] DAVID CARCAMO Facility:[facility] Payers Date Payer Category Payer Medicaid [id number] 1977 Unknown [id number] 1960 Unknown [id number] Social History Date Type Detail Facility Unknown if ever smoked [facility] Other Sex Assigned At Sex Assigned At Bir th [facility] Other Evaluation note 07-01-2023 Note Date & Type Note Facility 07-01-2023 Evaluation note Encounter Date Diagnosis Assessment Notes Jun, Elevated liver function tests (ICD-10 - R79.89) [facility] Other Evaluation note 06-03-2023 Note Date & [...] would like to have a referral for [facility]. I want him [...] (ICD-10 - R31.9) for lab order only [facility] Other Clinical Note 04-18-2021 Note Date & [...] by: MADONNA BRANNON Date: 2021-04-17 23:57 [facility] Evaluation note Note Date & Type Note Facility Evaluation note No Information [facility] [employer] Other History general Narrative - Reported Note Date & Type Note Facility History general Narrative - Reported Type Medical History asthma dx at a young age Hospitalization History pneumonia from a sthma - when he was a toddler [facility] Other Reason for referral (narrative) Note Date & Type Note Facility Reason for referral (narrative) Diagnosis 1 Anxiety and depressi on (F41.8) Referral Organization [facility] Referring Provider First Name Dannie Referring Provider Last Name Deon Referring Provider Specialty Family Practice Referred Organization [facility] [place] Referred Address [address] [place], [place],[address] Referred Provider Specialty Psychiatry Referral Priority Routine General Notes Karyna Dumont 06/03/2023 02:13:58 PM > [facility]. pt understands he will be contacted to schedule his initial appt. referral closed as it is for psychiatry/counseling and will not be followed. [facility] Other Reason for visit Narrative Note Date & Type Note Facility Reason for visit Narrative check up, dis cuss multiple issues, see treatment plan for further information [facility] [employer] Other Summary Purpose Family History No Family History Records FoundNo Family History Records Found Advance Directives No Advanced Directives Records FoundNo Advanced Directives Records Found Additional Source Comments (unrecognized sect ion and content) No Status Records FoundNo Status Records Found INFORMATION SOURCE (unrecogn ized section and content) DATE CREATED AUTHOR 04/24/2021 [facility] DATE CREATED AUTHOR AUTHOR'S LUCAS BROWN 01/06/2024 [facility] REASON FOR VISIT (unrecogniz ed section and [...] BE BASED ON THE PRIMARY CLINICAL RECORDS. [facility] [employer] [facility]. provides no warranty or guarantee of the accuracy or completeness of information in this document.
--- NOTE | 2024-06-14 16:39 | XR_ITS ---
The [address] [address] Patient Name: ELIGIO NOVA MRN: [id number] date: 2000 Sex: M Assigned Patient Location: ER Current Patient Location: ED.MAIN Accession/Order Number: [id number] Exam Date: 06/14/2024 16:34 Report Date: 06/14/2024 17:34 At the request of: ADELFO RAMSEY Procedure: XR wrist RT min 3V IMAGES REVIEWED: XR hand RT min 3V, XR wrist RT min 3V COMPARISON: None available. CLINICAL INDICATION: fall FINDINGS/IMPRESSION: 1. Only well seen on the lateral views there appears to be a cortical step-off involving the dorsal third metacarpal base suspicious for a subtle acute nondisplaced fracture. 2. Mild dorsal hand soft tissue swelling. 3. Otherwise the right hand and wrist appear intact. Electronically authenticated by: JADEN MENDIOLA Date: 06/14/2024 17:34
--- NOTE | 2024-06-14 16:39 | XR_ITS ---
The [address] [address] Patient Name: ELIGIO NOVA MRN: [id number] date: 2000 Sex: M Assigned Patient Location: ER Current Patient Location: ED.MAIN Accession/Order Number: [id number] Exam Date: 06/14/2024 16:34 Report Date: 06/14/2024 17:34 At the request of: ADELFO RAMSEY Procedure: XR hand RT min 3V IMAGES REVIEWED: XR hand RT min 3V, XR wrist RT min 3V COMPARISON: None available. CLINICAL INDICATION: fall FINDINGS/IMPRESSION: 1. Only well seen on the lateral views there appears to be a cortical step-off involving the dorsal third metacarpal base suspicious for a subtle acute nondisplaced fracture. 2. Mild dorsal hand soft tissue swelling. 3. Otherwise the right hand and wrist appear intact. Electronically authenticated by: JADEN MENDIOLA Date: 06/14/2024 17:34
[2024-06-14] MEDS: KETOROLAC TROMETHAMINE 10 MG TABLET PO (16:44)
[2024-06-14 17:48] VITALS: BP 120/82; PULSE 80; O2SAT 99
== END 2024-06-14 17:51 | disposition home or self-care (01) ==
PROVIDERS: Emergency Provider Emergency Medicine; PCP Family Medicine
DX: S62.342A Nondisplaced fracture of base of third metacarpal bone, right hand, initial encounter for closed fracture (principal); M79.641 Pain in right hand; W19.XXXA Unspecified fall, initial encounter
CPT/HCPCS: 73110; 73130; 99283

== ENCOUNTER 2024-06-19 17:08 | Emergency (ER) | payer OTHER, SELFPAY ==
--- OUTSIDE RECORDS SUMMARY | 2024-06-19 17:16 | XMS_ITS | CCD ---
Author Organization [facility] Inform ion Partnership [facility] Care Team Providers Care Pinball Machine Repairer Name Role Phone DR DAVID CARCAMO Admitting Unavailable DR DAVID CARCAMO Consulting Unavailable DR DAVID CARCAMO Attending Unavailable [facility], DR URBINA Primary Care Unavailable MADONNA BRANNON Consulting Unavailable Dannie Chavarria Unavailable Zeferino Galan Attending Unavailable Zeferino Galan Admitting Unavailable Allergies Allergy Classification Reported Allergen(s) Allergy Type Date of Onset Reaction(s) Facility (4 sources) Seasonal allergy Propensity to adverse reactions cold like sx [facility] Other Medications Current Medications Medication Drug Class(es) Dates Sig (Normalized) Sig (Original) [id number] 200 actuat albuterol 0.09 mg/actuat metered dose [...] 01-05-2024 Albumin [Mass/Vol] 4.6 g/dL Normal 3.5-5.7 [facility] Comment on above: Order Comment: 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 Performed By: #### C MP #### [facility] [address] [id number] [facility] Albumin/Globulin [Mass ratio] 1.8 {ratio} Normal [facility] Comment on above: Order Comment: 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 Performed By: #### C MP #### [address] ALT [Catalytic activity/Vol] 92 U/L High 7-52 [facility] Comment on above: Order Comment: 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 Performed By: #### C MP #### [address] Anion gap [Moles/Vol] 9.6 mmol/L Normal 6.0-15.0 [facility] Comment on above: Order Comment: 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 Performed By: #### C MP #### [address] AST [Catalytic activity/Vol] 55 U/L High 13-39 [facility] Comment on above: Order Comment: 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 Performed By: #### C MP #### [address] Bilirubin [Mass/Vol] 0.8 mg/dL Normal 0.3-1.0 [facility] Comment on above: Order Comment: 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 Performed By: #### C MP #### [place] [address] [place] Calcium [Mass/Vol] 9.1 mg/dL Normal 8.6-10.3 [facility] Comment on above: Order Comment: 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 Performed By: #### C MP #### [place] [address] [place] Chloride [Moles/Vol] 105 mmol/L Normal 98-107 [facility] Comment on above: Order Comment: 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 Performed By: #### C MP #### [address] CO2 [Moles/Vol] 27.5 mmol/L Normal 21.0-31.0 [facility] Comment on above: Order Comment: 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 Performed By: #### C MP #### [address] Creatinine [Mass/Vol] 0.84 mg/dL Normal 0.70-1.30 [facility] Comment on above: Order Comment: 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 Performed By: #### C MP #### [address] GFR/1.73 sq M.predicted MDRD (S/P/Bld) [Vol rate/Area] mL/min/{1.73_m2} Normal [facility] Comment on above: Order Comment: 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 Performed By: #### C MP #### [address] Globulin (S) [Mass/Vol] 2.5 g/dL Normal [facility] Comment on above: Order Comment: 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 Performed By: #### C MP #### [address] Glucose [Mass/Vol] 94 mg/dL Normal 70-100 [facility] Comment on above: Order Comment: 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 Result Comment: [place] om Glucose Reference Range is dependent on time and content of last meal. Glucose of more than 200 mg/dL in a nonstressed, ambulatory subject supports the diagnosis of Diabetes Mellitus. ADA recommended reference range Performed By: #### C MP #### [address] Potassium [Moles/Vol] 4.1 mmol/L Normal 3.5-5.1 [facility] Comment on above: Order Comment: 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 Performed By: #### C MP #### [address] Protein [Mass/Vol] 7.1 g/dL Normal 6.4-8.9 [facility] Comment on above: Order Comment: 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 Performed By: #### C MP #### [address] Sodium [Moles/Vol] 138 mmol/L Normal 136-145 [facility] Comment on above: Order Comment: 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 Performed By: #### C MP #### [address] Urea nitrogen [Mass/Vol] 13 mg/dL Normal 7-25 [facility] Comment on above: Order Comment: 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 Performed By: #### C MP #### [address] AMYLASEon 04-18-2021 Amylase [Catalytic activity/Vol] 44 U/L Normal 31-110 [facility] Comment on above: Performed By: #### A MIRTHA WISDOM CMADM #### [facility] [address] [address] Glynn Avila CARDIAC DAVID ADMITon 021 CK [Catalytic activity/Vol] 92 U/L Normal 55-170 [facility] Comment on above: Performed By: #### A MIRTHA WISDOM CMADM #### [facility] [address] [address] Glynn Avila CK.MB [Mass/Vol] ng/mL Normal <=2.37 [facility] Comment on above: Performed By: #### A MIRTHA WISDOM CMADM #### [facility] [address] [address] Glynn Margarita HSTROP <4.0 Normal 4.0-42.2 [facility] Comment on above: Result Comment: CUT- OFF POINTS HAVE BEEN ESTABLISHED BASED ON THE FOURTH UNIVERSAL DEFINITIONS OF MYOCARDIAL INFARCTION. THE UPPER REFERENCE LIMIT (URL) OF TROPONIN, DEFINED THE 99TH PERCENTILE OF cTnI DISTRIBUTION IN A REFERENCE POPULATION, HAS BEEN CONFIRMED THE DECISION THRESHOLD FOR MD DIAGNOSIS. Performed By: #### A MIRTHA WISDOM CMADM #### [facility] [address] [place] [address] Glynn Margarita CORY 37.0 ng/mL Normal <=121.0 [facility] Comment on above: Performed By: #### A MIRTHA WISDOM CMADM #### [facility] [address] [place] [address] Glynn Margarita CBC AUTO DIFFon 04-18-2021 BASO # 0.1 103/ul Normal 0.0-0.1 [facility] Comment on above: Performed By: #### C BC #### [facility] [address] [place] [address] Glynn Margarita Basophils/100 WBC (Bld) 0.8 % Normal 0.2-2.0 [facility] Comment on above: Performed By: #### C BC #### [facility] [address] [place] [address] Glynn Margarita EO # 0.4 103/ul Normal 0.0-0.7 [facility] Comment on above: Performed By: #### C BC #### [facility] [address] [place] [address] Glynn Margarita Eosinophils/100 WBC (Bld) 4.3 % Normal 0.9-7.0 [facility] Comment on above: Performed By: #### C BC #### [facility] [address] [place] [address] Glynn Margarita Erythrocyte distribution width (RBC) [Ratio] 13.0 % Normal 11.0-15.0 [facility] Comment on above: Performed By: #### C BC #### [facility] [address] [place] [address] Glynn Margarita Hematocrit (Bld) [Volume fraction] 47.6 % Normal 42.0-54.0 [facility] Comment on above: Performed By: #### C BC #### [facility] [address] [place] [address] Glynnmando Avila Hemoglobin (Bld) [Mass/Vol] 15.9 g/dL Normal 14.0-18.0 [facility] Comment on above: Performed By: #### C BC #### [facility] [address] [place] [address] Glynnmando Avila IG # 0.02 10e3/ul Normal 0.00-0.03 [facility] Comment on above: Performed By: #### C BC #### [facility] [address] [place] [address] Glynn Margarita IG % 0.2 % Normal 0.0-0.5 [facility] Comment on above: Performed By: #### C BC #### [facility] [address] [place] [address] Glynn Margarita LYMPH # 1.9 103/ul Normal 1.2-3.8 [facility] Comment on above: Performed By: #### C BC #### [facility] [address] [place] [address] Glynn Avila Lymphocytes/100 WBC (Bld) 20.7 % Normal 20.5-60.0 [facility] Comment on above: Performed By: #### C BC #### [facility] [address] [place] [address] Glynn Avila MANUAL DIFF REQ NO Normal [facility] Comment on above: Performed By: #### C BC #### [facility] [address] [place] [address] Glynnmando Avila MCH (RBC) [Entitic mass] 28.0 pg Normal 25.9-34.0 [facility] Comment on above: Performed By: #### C BC #### [facility] [address] [place] [address] Glynnmando Avila MCHC (RBC) [Mass/Vol] 33.4 g/dL Normal 29.9-35.2 [facility] Comment on above: Performed By: #### C BC #### [facility] [address] [place] [address] Glynnmando Burrellen MCV (RBC) [Entitic vol] 83.8 fL Normal 80.0-94.0 [facility] Comment on above: Performed By: #### C BC #### [facility] [address] [place], [place] [id number] Glynn Avila MONO # 0.6 103/ul Normal 0.3-0.8 [facility] Comment on above: Performed By: #### C BC #### [facility] [address] [place], [place] [id number] Glynn Magrarita Monocytes/100 WBC (Bld) 6.9 % Normal 1.7-12.0 [facility] Comment on above: Performed By: #### C BC #### [facility] [address] [place] [address] Glynn Margarita NEUT # 6.2 103/ul Normal 1.4-6.5 [facility] Comment on above: Performed By: #### C BC #### [facility] [address] [place] [address] Glynn Burrellen Neutrophils/100 WBC (Bld) 67.1 % Normal 43.0-75.0 [facility] Comment on above: Performed By: #### C BC #### [facility] [address] [place], [place] [id number] Glynnmando Burrellen Platelet mean volume (Bld) [Entitic vol] 9.7 fL Normal 9.5-13.5 [facility] Comment on above: Performed By: #### C BC #### [facility] [address] [place], [place] [id number] Glynn Margarita PLT 314 103/ul Normal 150-450 [facility] Comment on above: Performed By: #### C BC #### [facility] [address] [place], [place] [id number] Glynn Margarita RBC 5.68 106/ul Normal 4.70-6.10 [facility] Comment on above: Performed By: #### C BC #### [facility] [address] [place], [place] [id number] Glynn Margarita WBC 9.2 103/ul Normal 4.0-11.0 [facility] Comment on above: Performed By: #### C BC #### [facility] [address] [place] [address] Glynn Avila CULTURE BLOODon 04-18-2021 Microscopic examination of blood, culture Culture Observations: NO GROWTH AT 5 DAYS. Normal [facility] Comment on above: Performed By: #### B [id number] #### [facility] [address] [place] [address] Glynn Avila [facility] 04-03 SARS-CoV-2 (COVID-19) RNA LUDIN+probe Ql (Unsp spec) Not detected Normal NOT DETECTED [facility] Comment on above: Result Comment: This test is not yet approved or cleared by the [place] FDA. When there are no FDA-approved or cleared tests available, and other criteria are met, FDA can make tests available under an emergency access mechanism called an Emergency Use Authorization (EUA). The EUA for this test is supported by the Divisional Human Resources Director of Health and Human Service's (HHS's) declaration [...] By: #### C VDTBH #### [facility] [address] [place] [address] Glynn Avila D-DIMERon 04-18-2021 D-DIMER 0.26 mg/L FEU Normal 0.19-0.50 [facility] Comment on above: Performed By: #### C VDAG #### [facility] [address] [place] [address] Glynn Avila D-DIMER COMMENTS SEE BELOW Normal [facility] Comment on above: Result Comment: Incr [...] By: #### C VDAG #### [facility] [address] [place] [address] Glynn Margarita LACTATE/LACTIC ACIDon 2020 Lactate [Moles/Vol] 1.6 mmol/L Normal 0.7-2.0 [facility] Comment on above: Performed By: #### L ACT #### [facility] [address] [place] [address] Glynn Margarita LIPASEon 04-18-2021 Lipase [Catalytic activity/Vol] 92.0 U/L Normal 23.0-300.0 [facility] Comment on above: Performed By: #### A MY, LIPA, CMADM #### [facility] [address] [place], [place] [id number] Glynn Margarita PROF 14(COMP METB)on 021 Albumin [Mass/Vol] 4.3 g/dL Normal 3.5-5.0 [facility] Comment on above: Performed By: #### C MP #### [facility] [address] [place], [place] [id number] Glynn Margarita Albumin/Globulin [Mass ratio] 1.3 {ratio} Normal [facility] Comment on above: Performed By: #### C MP #### [facility] [address] [place], [place] [id number] Glynn Margarita ALP [Catalytic activity/Vol] 91 U/L Normal 38-126 [facility] Comment on above: Performed By: #### C MP #### [facility] [address] [place] [address] Glynn Margarita ALT [Catalytic activity/Vol] 149 U/L Critically high 21-72 [facility] Comment on above: Performed By: #### C MP #### [facility] [address] [address] Glynn Margarita Anion gap [Moles/Vol] 14.3 mmol/L Normal [facility] Comment on above: Performed By: #### C MP #### [facility] [address] [address] Glynn Margarita AST [Catalytic activity/Vol] 62 U/L Critically high 17-59 [facility] Comment on above: Performed By: #### C MP #### [facility] [address] [id number] Glynn Margarita Bilirubin [Mass/Vol] 0.7 mg/dL Normal 0.2-1.3 [facility] Comment on above: Performed By: #### C MP #### [facility] [address] [place] [address] Glynn Margarita Calcium [Mass/Vol] 9.2 mg/dL Normal 8.4-10.2 [facility] Comment on above: Performed By: #### C MP #### [facility] [address] [place] [address] Glynn Margarita Chloride [Moles/Vol] 104 mmol/L Normal 98-107 [facility] Comment on above: Performed By: #### C MP #### [facility] [address] [place] [address] Glynn Margarita CO2 [Moles/Vol] 29.4 mmol/L Normal 22.0-30.0 [facility] Comment on above: Performed By: #### C MP #### [facility] [address] [place] [address] Glynn Margarita Creatinine [Mass/Vol] 1.00 mg/dL Normal 0.66-1.25 [facility] Comment on above: Performed By: #### C MP #### [facility] [address] [place], [place] [address] Glynn Margarita EGFR-AF BRITISH >60 Normal >=60 [facility] Comment on above: Performed By: #### C MP #### [facility] [address] [place], [place] [id number] Glynn Margarita EGFR-NON AF BRITISH >60 Normal >=60 [facility] Comment on above: Performed By: #### C MP #### [facility] [address] [place], [place] [address] Glynn Margarita Globulin (S) [Mass/Vol] 3.4 g/dL Normal [facility] Comment on above: Performed By: #### C MP #### [facility] [address] [place], [place] [address] Glynn Margarita Glucose [Mass/Vol] 92 mg/dL Normal 74-106 [facility] Comment on above: Performed By: #### C MP #### [facility] [address] [place], [place] [address] Glynn Margarita Potassium [Moles/Vol] 3.7 mmol/L Normal 3.4-5.0 [facility] Comment on above: Performed By: #### C MP #### [facility] [address] [place], [place] [address] Glynn Margarita Protein [Mass/Vol] 7.7 g/dL Normal 6.1-8.2 [facility] Comment on above: Performed By: #### C MP #### [facility] [address] [place], [place] [address] Glynn Margarita Sodium [Moles/Vol] 144 mmol/L Normal 137-145 [facility] Comment on above: Performed By: #### C MP #### [facility] [address] [place], [place] [address] Glynn Margarita Urea nitrogen [Mass/Vol] 11.0 mg/dL Normal 9.0-20.0 [facility] Comment on above: Performed By: #### C MP #### [facility] [address] [place], [place] [address] Glynn Margarita Urea nitrogen/Creatinine [Mass ratio] 11.0 mg/mg Normal [facility] Comment on above: Performed By: #### C MP #### [facility] [address] [place] [address] Glynn Margarita RAPID COVID-19 ANTIGENon EUA Statement SEE BELOW Normal [facility] Comment on above: Result Comment: This [...] By: #### C VDAG #### [facility] [address] [place] [address] Glynn Avila SARS-CoV-2 (COVID-19) RNA LUDIN+probe Ql (Unsp spec) Negative Normal NEGATIVE [facility] Comment on above: Result Comment: Nega tive results are presumptive. They do not preclude infection and should not be used as the sole basis for treatment decisions. Additional confirmatory testing by a molecular method should be considered. Performed By: #### C VDAG #### [facility] [address] [place] [address] Glynn Avila Vital Signs Date Time Vital Sign Value Performing Clinician Facility 06-03-2023 13:20-0400 Body height 166.37 cm Dannie Chavarria Other [facility] Other 06-03-2023 13:20-0400 Body mass index (BMI) [Ratio] 29.66 kg/m2 Dannie Chavarria Other [facility] Other 06-03-2023 13:20-0400 Body temperature 98.5 [degF] Dannie Chavarria Other [facility] Other 06-03-2023 13:20-0400 Body weight 82.1 kg Dannie Chavarria Other [facility] Other 06-03-2023 13:20-0400 Diastolic blood pressure 78 mm[Hg] Dannie Deon Other [facility] Other 06-03-2023 13:20-0400 Respiratory rate 18 /min Dannie Deon Other [facility] Other 06-03-2023 13:20-0400 SaO2% (BldA) [Mass fraction] 98 % Dannie Chavarria Other [facility] Other 06-03-2023 13:20-0400 Systolic blood pressure 120 mm[Hg] Dannie Chavarria Other [facility] Other Encounters Encounter Date Encounter Type Care Provider Facility Start: 01-05-2024 End: 01-05-2024 ambulatory Zeferino Galan Facility:[facility] Start: 07-17-2023 End: 07-17-2023 ambulatory Dannie Chavarria Other [facility] Other Start: 07-17-2023 Telephone encounter Dannie Chavarria [facility] [place] Start: 07-14-2023 End: 07-14-2023 ambulatory Dannie Chavarria Other [facility] Other Start: 07-14-2023 Telephone encounter Dannie Chavarria [facility] [place] Start: 07-01-2023 End: 07-01-2023 ambulatory Dannie Chavarria Other [facility] Other Start: 07-01-2023 Telephone encounter Dannie Chavarria [facility] [place] Start: 06-03-2023 End: 06-03-2023 ambulatory Dannie Chavarria Other [facility] Other Start: 06-03-2023 Office outpatient ne w 30 minutes Dannie Chavarria [facility] [place] Start: 04-18-2021 End: 04-18-[address] DAVID CARCAMO Facility:[facility] Payers Date Payer Category Payer Medicaid [id number]. [id number] 1977 Unknown [id number] 1960 Unknown [id number] Social History Date Type Detail Facility Unknown if ever smoked [facility] Other Sex Assigned At Sex Assigned At Bir th [facility] Other Evaluation note 07-01-2023 Note Date & Type Note Facility 07-01-2023 Evaluation note Encounter Date Diagnosis Assessment Notes Jun, Elevated liver function tests (ICD-10 - R79.89) [facility] Other Evaluation note 06-03-2023 Note Date & [...] would like to have a referral for [facility]. I want him [...] (ICD-10 - R31.9) for lab order only [facility] Other Clinical Note 04-18-2021 Note Date & [...] BRANNON Date: 2021-04-17 23:57 [facility] Evaluation note Note Date & Type Note Facility Evaluation note No Information [facility] Other History general Narrative - Reported Note Date & Type Note Facility History general Narrative - Reported Type Medical History asthma dx at a young age Hospitalization History pneumonia from a sthma - when he was a toddler [facility] Other Reason for referral (narrative) Note Date & Type Note Facility Reason for referral (narrative) Diagnosis 1 Anxiety and depressi on (F41.8) Referral Organization [facility] Referring Provider First Name Dannie Referring Provider Last Name Deon Referring Provider Specialty Family Practice Referred Organization [facility] Annetta Referred Address [address] [place], [place],[address] Referred Provider Specialty Psychiatry Referral Priority Routine General Notes Karyna Dumont 06/03/2023 02:13:58 PM > [facility] form faxed to [facility]. pt understands he will be contacted to schedule his initial appt. referral closed as it is for psychiatry/counseling and will not be followed. [facility] Other Reason for visit Narrative Note Date & Type Note Facility Reason for visit Narrative check up, dis cuss multiple issues, see treatment plan for further information [facility] Other Summary Purpose Family History No Family History Records FoundNo Family History Records Found Advance Directives No Advanced Directives Records FoundNo Advanced Directives Records Found Additional Source Comments (unrecognized sect ion and content) No Status Records FoundNo Status Records Found INFORMATION SOURCE (unrecogn ized section and content) DATE CREATED AUTHOR 04/24/2021 [facility] DATE CREATED AUTHOR AUTHOR'S LUCAS BROWN 01/06/2024 [facility] REASON FOR VISIT (unrecogniz ed section [...] BE BASED ON THE PRIMARY CLINICAL RECORDS. [facility] [employer] [facility]. provides no warranty or guarantee of the accuracy or completeness of information in this document.
[2024-06-19 17:29] VITALS: BP 135/84; PULSE 98; TEMP 36.9; O2SAT 98; BMI 30.7
--- NOTE | 2024-06-19 17:58 | ED_ITS ---
HPI HPI - General Adult General Chief complaint: Upper Respiratory Infection Stated complaint: stabbing feeling in throat Time Seen by Provider: 06/19/24 17:26 Source: patient Mode of arrival: walk-in Limitations: no limitations History of Present Illness HPI narrative: Pain to the left side of the throat - began last night and progressively worsened. Hurts to swallow and talk. No meds taken at home for the pain. Related Data Home Medications ?Medication ?Instructions ?Recorded ?Confirmed escitalopram oxalate 20 mg tablet 20 mg PO DAILY 06/14/24 06/19/24 estradiol 1 mg tablet 2 mg PO BID 06/14/24 06/19/24 lamotrigine 100 mg tablet 150 mg PO DAILY 06/14/24 06/19/24 lurasidone 40 mg tablet 40 mg PO DAILY 06/14/24 06/19/24 spironolactone 25 mg tablet 25 mg PO BID 06/14/24 06/19/24 Allergies Allergy/AdvReac Type Severity Reaction Status Date / Time No Known Drug Allergies Allergy Verified 06/19/24 17:27 Opioid HPI Opioid Management Most Recent Opioid Data: Last Pain Scale 6 06/14/24 16:49 Last MAR Pain Assessment 06/14/24 16:44 Exam Narrative Exam Narrative: Nurses notes and vital signs reviewed and patient is not hypoxic. afebrile General: Well-appearing and in no apparent distress. Skin: Warm, dry, no pallor noted. No rash. Head: Normocephalic, atraumatic. Neck: Supple, non-tender. Mild left anterior upper cervical lymphadenopathy. Eye: Pupils are equal, round and EOMI. No scleral icterus. Ears, Nose, Mouth, and Throat: TM are clear, no nasal mucosal hypertrophy. posterior oropharynx erythema With symmetrical pharyngeal swelling and tonsillar exudate, uvula is mid-line. Oral mucosa is moist Cardiovascular: Borderline tachycardia Respiratory: No accessory muscle use or respiratory distress. Lungs are clear to auscultation, no wheezing, rales or rhonchi Neurological: A&O x4. No cranial nerve dysfunction observed. No truncal a taxia. Moves all extremities. Sensation intact. Psychiatric: Cooperative and interactive. Normal mood and affect. Constitutional Vital Signs, click to edit/add: Last Vital Signs Temp 98.4 F 06/19/24 17:29 Pulse 98 H 08/17/24 17:29 Resp 20 06/19/24 17:29 BP 135/84 06/19/24 17:29 Pulse Ox 98 06/19/24 17:29 O2 Del Method Room Air 06/19/24 17:29 Course Vital Signs Vital signs: Vital Signs Temperature 98.4 F 06/19/24 17:29 Pulse Rate 98 H 06/19/24 17:29 Respiratory Rate 20 06/19/24 17:29 Blood Pressure 135/84 06/19/24 17:29 Pulse Oximetry 98 06/19/24 17:29 Oxygen Delivery Method Room Air 06/19/24 17:29 Temperature 98.4 F 06/19/24 17:29 Pulse Rate 98 H 06/19/24 17:29 Respiratory Rate 20 06/19/24 17:29 Blood Pressure 135/84 06/19/24 17:29 Pulse Oximetry 98 06/19/24 17:29 Oxygen Delivery Method Room Air 06/19/24 17:29 Medical Decision Making MDM Narrative Medical decision making narrative: Clinically, the patient has acute pharyngitis that would benefit from antib iotics. Strep screen was obtained and was negative but I am going to discharge him home with a prescription for Clindamycin and for BMX solution. PCP follow- up recommended. ED return if he worsens. Lab Data Lab results reviewed: Yes I reviewed the patient's lab results Discharge Plan Discharge Stand Alone Forms: Portal Instructions Chief Complaint: Upper Respiratory Infection Clinical Impression: Pharyngitis Patient Disposition: Home, Self-Care Time of Disposition Decision: 18:37 Prescriptions / Home Meds: No Action escitalopram oxalate 20 mg tablet 20 mg PO DAILY estradiol 1 mg tablet 2 mg PO BID lamotrigine 100 mg tablet 150 mg PO DAILY lurasidone 40 mg tablet 40 mg PO DAILY spironolactone 25 mg tablet 25 mg PO BID Print Language: [place] Referrals: PIPE VERMA [Primary Care Provider] - 1 week
[2024-06-19 18:27] LABS: Internal Control Within Normal Limits; Strep A Antigen Screen Negative
== END 2024-06-19 18:59 | disposition home or self-care (01) ==
PROVIDERS: Emergency Provider Emergency Medicine; PCP Family Medicine
DX: J02.9 Acute pharyngitis, unspecified (principal)
CPT/HCPCS: 87070; 87880; 99283

== ENCOUNTER 2024-07-19 11:06 | Outpatient (OUT) | payer OTHER, SELFPAY ==
--- NOTE | 2024-07-19 | XR_ITS ---
The [address] [address] Patient Name: ELIGIO NOVA MRN: [id number] date: 2000 Sex: M Assigned Patient Location: Current Patient Location: Accession/Order Number: [id number] Exam Date: 07/19/2024 11:07 Report Date: 07/21/2024 07:47 At the request of: POOJA MONTGOMERY Procedure: XR hand RT min 3V PROCEDURE: XR hand RT min 3V COMPARISON: 06/14/2024 HISTORY: RIGHT HAND PAIN FINDINGS: BONES:Stable lucency identified along the dorsal base of the third metacarpal with increased sclerosis SOFT TISSUES:Negative. No visible soft tissue swelling. EFFUSION:None visible. OTHER: Negative. XR/XR hand RT min 3V IMPRESSION: Stable healing fracture base of the third metacarpal Electronically authenticated by: PIPE THOMPSON Date: 07/21/2024 07:47
--- OUTSIDE RECORDS SUMMARY | 2024-07-19 11:24 | XMS_ITS | CCD ---
Author Organization [facility] Inform ion Partnership [facility] Care Team Providers Care Pressure Tester Operator Name Role Phone DR DAVID CARCAMO Admitting Unavailable DR DAVID CARCAMO Consulting Unavailable DR DAVID CARCAMO Attending Unavailable [facility] URBINA Primary Care Unavailable MADONNA BRANNON Consulting Unavailable Dannie Chavarria Unavailable Zeferino Galan Attending Unavailable Zeferino Galan Admitting Unavailable Allergies Allergy Classification Reported Allergen(s) Allergy Type Date of Onset Reaction(s) Facility (4 sources) Seasonal allergy Propensity to adverse reactions cold like sx 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 Performed By: #### C MP #### [address] Bilirubin [Mass/Vol] 0.8 mg/dL Normal 0.3-1.0 [facility] Comment on above: Order Comment: 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 Performed By: #### C MP #### [place] [address] [place] Calcium [Mass/Vol] 9.1 mg/dL Normal 8.6-10.3 [facility] Comment on above: Order Comment: 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 Performed By: #### C MP #### [place] [address] [place] Chloride [Moles/Vol] 105 mmol/L Normal 98-107 [facility] Comment on above: Order Comment: 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 Performed By: #### C MP #### [address] CO2 [Moles/Vol] 27.5 mmol/L Normal 21.0-31.0 [facility] Comment on above: Order Comment: 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 Performed By: #### C MP #### [address] Creatinine [Mass/Vol] 0.84 mg/dL Normal 0.70-1.30 [facility] Comment on above: Order Comment: 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 Performed By: #### C MP #### [address] GFR/1.73 sq M.predicted MDRD (S/P/Bld) [Vol rate/Area] mL/min/{1.73_m2} Normal [facility] Comment on above: Order Comment: 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 Glucose of more than 200 mg/dL in a nonstressed, ambulatory subject supports the diagnosis of Diabetes Mellitus. 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 Performed By: #### C MP #### [address] Urea nitrogen [Mass/Vol] 13 mg/dL Normal 7-25 [facility] Comment on above: Order Comment: 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 Performed By: #### C MP #### [address] AMYLASEon 04-18-2021 Amylase [Catalytic activity/Vol] 44 U/L Normal 31-110 [facility] Comment on above: Performed By: #### A MIRTHA WISDOM CMADM #### [facility] [address] [address] Glynn Avila CARDIAC DAVID ADMITon 021 CK [Catalytic activity/Vol] 92 U/L Normal 55-170 [facility] Comment on above: Performed By: #### A MIRTHA WISDOM CMADM #### [facility] [address] [address] [place]nn Avila CK.MB [Mass/Vol] ng/mL Normal <=2.37 [facility] Comment on above: Performed By: #### A MIRTHA WISDOM CMADM #### [facility] [address] [address] Glynn Margarita HSTROP <4.0 Normal 4.0-42.2 [facility] Comment on above: Result Comment: CUT- OFF POINTS HAVE BEEN ESTABLISHED BASED ON THE FOURTH UNIVERSAL DEFINITIONS OF MYOCARDIAL INFARCTION. THE UPPER REFERENCE LIMIT (URL) OF TROPONIN, DEFINED THE 99TH PERCENTILE OF cTnI DISTRIBUTION IN A REFERENCE POPULATION, HAS BEEN CONFIRMED THE DECISION THRESHOLD FOR [place] DIAGNOSIS. Performed By: #### A MIRTHA WISDOM CMADM #### [facility] [address] [place] [address] Glynn Margarita CORY 37.0 ng/mL Normal <=121.0 [facility] Comment on above: Performed By: #### A MIRTHA WISDOM CMADM #### [facility] [address] [place] [address] Glynn Margarita CBC AUTO DIFFon 04-18-2021 BASO # 0.1 103/ul Normal 0.0-0.1 [facility] Comment on above: Performed By: #### C BC #### [facility] [address] [place] [address] Glynn Margarita Basophils/100 WBC (Bld) 0.8 % Normal 0.2-2.0 [facility] Comment on above: Performed By: #### C BC #### [facility] [address] [place] [address] Glynn Margarita EO # 0.4 103/ul Normal 0.0-0.7 [facility] Comment on above: Performed By: #### C BC #### [facility] [address] [place] [address] Glynn Margarita Eosinophils/100 WBC (Bld) 4.3 % Normal 0.9-7.0 [facility] Comment on above: Performed By: #### C BC #### [facility] [address] [place] [address] Glynn Margarita Erythrocyte distribution width (RBC) [Ratio] 13.0 % Normal 11.0-15.0 [facility] Comment on above: Performed By: #### C BC #### [facility] [address] [place] [address] Glynn Margarita Hematocrit (Bld) [Volume fraction] 47.6 % Normal 42.0-54.0 [facility] Comment on above: Performed By: #### C BC #### [facility] [address] [place] [address] Glynnmando Avila Hemoglobin (Bld) [Mass/Vol] 15.9 g/dL Normal 14.0-18.0 [facility] Comment on above: Performed By: #### C BC #### [facility] [address] [place] [address] Glynnmando Avila IG # 0.02 10e3/ul Normal 0.00-0.03 [facility] Comment on above: Performed By: #### C BC #### [facility] [address] [place] [address] Glynn Margarita IG % 0.2 % Normal 0.0-0.5 [facility] Comment on above: Performed By: #### C BC #### [facility] [address] [place] [address] Glynn Margarita LYMPH # 1.9 103/ul Normal 1.2-3.8 [facility] Comment on above: Performed By: #### C BC #### [facility] [address] [place] [address] Glynn Avila Lymphocytes/100 WBC (Bld) 20.7 % Normal 20.5-60.0 [facility] Comment on above: Performed By: #### C BC #### [facility] [address] [place] [address] Glynn Avila MANUAL DIFF REQ NO Normal [facility] Comment on above: Performed By: #### C BC #### [facility] [address] [place] [address] Glynnmando Avila MCH (RBC) [Entitic mass] 28.0 pg Normal 25.9-34.0 [facility] Comment on above: Performed By: #### C BC #### [facility] [address] [place] [address] Glynnmando Avila MCHC (RBC) [Mass/Vol] 33.4 g/dL Normal 29.9-35.2 [facility] Comment on above: Performed By: #### C BC #### [facility] [address] [place] [address] Glynnmando Burrellen MCV (RBC) [Entitic vol] 83.8 fL Normal 80.0-94.0 [facility] Comment on above: Performed By: #### C BC #### [facility] [address] [place], [place] [id number] Glynn Avila MONO # 0.6 103/ul Normal 0.3-0.8 [facility] Comment on above: Performed By: #### C BC #### [facility] [address] [place], [place] [id number] Glynn Margarita Monocytes/100 WBC (Bld) 6.9 % Normal 1.7-12.0 [facility] Comment on above: Performed By: #### C BC #### [facility] [address] [place] [address] Glynn Margarita NEUT # 6.2 103/ul Normal 1.4-6.5 [facility] Comment on above: Performed By: #### C BC #### [facility] [address] [place] [address] Glynn Burrellen Neutrophils/100 WBC (Bld) 67.1 % Normal 43.0-75.0 [facility] Comment on above: Performed By: #### C BC #### [facility] [address] [place], [place] [id number] Glynnmando Burrellen Platelet mean volume (Bld) [Entitic vol] 9.7 fL Normal 9.5-13.5 [facility] Comment on above: Performed By: #### C BC #### [facility] [address] [place], [place] [id number] Glynn Margarita PLT 314 103/ul Normal 150-450 [facility] Comment on above: Performed By: #### C BC #### [facility] [address] [place], [place] [id number] Glynn Margarita RBC 5.68 106/ul Normal 4.70-6.10 [facility] Comment on above: Performed By: #### C BC #### [facility] [address] [place], [place] [id number] Glynn Margarita WBC 9.2 103/ul Normal 4.0-11.0 [facility] Comment on above: Performed By: #### C BC #### [facility] [address] [place] [address] Glynn Avila CULTURE BLOODon 04-18-2021 Microscopic examination of blood, culture Culture Observations: NO GROWTH AT 5 DAYS. Normal [facility] Comment on above: Performed By: #### B LDCX1 #### [facility] [address] [place] [address] Glynn Avila [facility]03 SARS-CoV-2 (COVID-19) RNA LUDIN+probe Ql (Unsp spec) Not detected Normal NOT DETECTED [facility] Comment on above: Result Comment: This test is not yet approved or cleared by the [place] FDA. When there are no FDA-approved or cleared tests available, and other criteria are met, FDA can make tests available under an emergency access mechanism called an Emergency Use Authorization (EUA). The EUA for this test is supported by the Horseback Riding Instructor of Health and Human Service's (HHS's) declaration [...] SARS-CoV-2. Performed By: #### C VDTBH #### [facility] [address] [place] [address] Glynn Avila D-DIMERon 04-18-2021 D-DIMER 0.26 mg/L FEU Normal 0.19-0.50 [facility] Comment on above: Performed By: #### C VDAG #### [facility] [address] [place] [address] Glynn Avila D-DIMER COMMENTS SEE BELOW Normal [facility] Comment on above: Result Comment: Incr eases [...] hospitalization. Performed By: #### C VDAG #### [facility] [address] [place] [address] Glynn Margarita LACTATE/LACTIC ACIDon 2020 Lactate [Moles/Vol] 1.6 mmol/L Normal 0.7-2.0 [facility] Comment on above: Performed By: #### L ACT #### [facility] [address] [place] [address] Glynn Margarita LIPASEon 04-18-2021 Lipase [Catalytic activity/Vol] 92.0 U/L Normal 23.0-300.0 [facility] Comment on above: Performed By: #### A MY, LIPA, CMADM #### [facility] [address] [place], [place] [id number] Glynn Margarita PROF 14(COMP METB)on 021 Albumin [Mass/Vol] 4.3 g/dL Normal 3.5-5.0 [facility] Comment on above: Performed By: #### C MP #### [facility] [address] [place], [place] [id number] Glynn Margarita Albumin/Globulin [Mass ratio] 1.3 {ratio} Normal [facility] Comment on above: Performed By: #### C MP #### [facility] [address] [place], [place] [id number] Glynn Margarita ALP [Catalytic activity/Vol] 91 U/L Normal 38-126 [facility] Comment on above: Performed By: #### C MP #### [facility] [address] [place] [address] Glynn Margarita ALT [Catalytic activity/Vol] 149 U/L Critically high 21-72 [facility] Comment on above: Performed By: #### C MP #### [facility] [address] [address] Glynn Margarita Anion gap [Moles/Vol] 14.3 mmol/L Normal [facility] Comment on above: Performed By: #### C MP #### [facility] [address] [address] Glynn Margarita AST [Catalytic activity/Vol] 62 U/L Critically high 17-59 [facility] Comment on above: Performed By: #### C MP #### [facility] [address] [id number] Glynn Margarita Bilirubin [Mass/Vol] 0.7 mg/dL Normal 0.2-1.3 [facility] Comment on above: Performed By: #### C MP #### [facility] [address] [place] [address] Glynn Margarita Calcium [Mass/Vol] 9.2 mg/dL Normal 8.4-10.2 [facility] Comment on above: Performed By: #### C MP #### [facility] [address] [place] [address] Glynn Margarita Chloride [Moles/Vol] 104 mmol/L Normal 98-107 [facility] Comment on above: Performed By: #### C MP #### [facility] [address] [place] [address] Glynn Margarita CO2 [Moles/Vol] 29.4 mmol/L Normal 22.0-30.0 [facility] Comment on above: Performed By: #### C MP #### [facility] [address] [place] [address] Glynn Margarita Creatinine [Mass/Vol] 1.00 mg/dL Normal 0.66-1.25 [facility] Comment on above: Performed By: #### C MP #### [facility] [address] [place], [place] [id number] Glynn Margarita EGFR-AF KITTITIAN >60 Normal >=60 [facility] Comment on above: Performed By: #### C MP #### [facility] [address] [place], [place] [id number] Glynn Margarita EGFR-NON AF KITTITIAN >60 Normal >=60 [facility] Comment on above: Performed By: #### C MP #### [facility] [address] [place], [place] [address] Glynn Margarita Globulin (S) [Mass/Vol] 3.4 g/dL Normal [facility] Comment on above: Performed By: #### C MP #### [facility] [address] [place], [place] [address] Glynn Margarita Glucose [Mass/Vol] 92 mg/dL Normal 74-106 [facility] Comment on above: Performed By: #### C MP #### [facility] [address] [place], [place] [address] Glynn Margarita Potassium [Moles/Vol] 3.7 mmol/L Normal 3.4-5.0 [facility] Comment on above: Performed By: #### C MP #### [facility] [address] [place], [place] [address] Glynn Margarita Protein [Mass/Vol] 7.7 g/dL Normal 6.1-8.2 [facility] Comment on above: Performed By: #### C MP #### [facility] [address] [place], [place] [address] Glynn Margarita Sodium [Moles/Vol] 144 mmol/L Normal 137-145 [facility] Comment on above: Performed By: #### C MP #### [facility] [address] [place], [place] [address] Glynn Margarita Urea nitrogen [Mass/Vol] 11.0 mg/dL Normal 9.0-20.0 [facility] Comment on above: Performed By: #### C MP #### [facility] [address] [place], [place] [address] Glynn Margarita Urea nitrogen/Creatinine [Mass ratio] 11.0 mg/mg Normal [facility] Comment on above: Performed By: #### C MP #### [facility] [address] [place] [address] Glynn Margarita RAPID COVID-19 ANTIGENon EUA Statement SEE BELOW Normal [facility] Comment on above: Result Comment: This [...] sooner. Performed By: #### C VDAG #### [facility] [address] [place] [address] Glynn Avila SARS-CoV-2 (COVID-19) RNA LUDIN+probe Ql (Unsp spec) Negative Normal NEGATIVE [facility] Comment on above: Result Comment: Nega tive results are presumptive. They do not preclude infection and should not be used as the sole basis for treatment decisions. Additional confirmatory testing by a molecular method should be considered. Performed By: #### C VDAG #### [facility] [address] [place] [address] Glynn Avila Vital Signs Date Time Vital Sign Value Performing Clinician Facility 06-03-2023 13:20-0400 Body height 166.37 cm Dannie Chavarria Other [employer] Other 06-03-2023 13:20-0400 Body mass index (BMI) [Ratio] 29.66 kg/m2 Dannie Chavarria Other [employer] Other 06-03-2023 13:20-0400 Body temperature 98.5 [degF] Dannie Chavarria Other [employer] Other 06-03-2023 13:20-0400 Body weight 82.1 kg Dannie Chavarria Other [employer] Other 06-03-2023 13:20-0400 Diastolic blood pressure 78 mm[Hg] Dannie Deon Other [employer] Other 06-03-2023 13:20-0400 Respiratory rate 18 /min Dannie Deon Other [employer] Other 06-03-2023 13:20-0400 SaO2% (BldA) [Mass fraction] 98 % Dannie Chavarria Other [employer] Other 06-03-2023 13:20-0400 Systolic blood pressure 120 mm[Hg] Dannie Chavarria Other [employer] Other Encounters Encounter Date Encounter Type Care Provider Facility Start: 01-05-2024 End: 01-05-2024 ambulatory Zeferino Galan Facility:[facility] Start: 07-17-2023 End: 07-17-2023 ambulatory Dannie Chavarria Other [employer] Other Start: 07-17-2023 Telephone encounter Dannie Chavarria [facility] Start: 07-14-2023 End: 07-14-2023 ambulatory Dannie Chavarria Other [employer] Other Start: 07-14-2023 Telephone encounter Dannie Chavarria [facility] [place] Start: 07-01-2023 End: 07-01-2023 ambulatory Dannie Chavarria Other [employer] Other Start: 07-01-2023 Telephone encounter Dannie Chavarria [facility] [place] Start: 06-03-2023 End: 06-03-2023 ambulatory Dannie Chavarria Other [employer] Other Start: 06-03-2023 Office outpatient ne w 30 minutes Dannie Chavarria [facility] Start: 04-18-2021 End: 04-18-[address] DAVID CARCAMO Facility:[facility] Payers Date Payer Category Payer Medicaid [id number] 1977 Unknown [id number] 1960 Unknown [id number] Social History Date Type Detail Facility Unknown if ever smoked [employer] Other Sex Assigned At Sex Assigned At Bir th [employer] Other Evaluation note 07-01-2023 Note Date & Type Note Facility 07-01-2023 Evaluation note Encounter Date Diagnosis Assessment Notes Jun, Elevated liver function tests (ICD-10 - R79.89) [employer] Other Evaluation note 06-03-2023 Note Date & [...] would like to have a referral for [facility]. I want him to [...] (ICD-10 - R31.9) for lab order only [employer] Other Clinical Note 04-18-2021 Note Date & [...] by: MADONNA BRANNON Date: 2021-04-17 23:57 [facility] Evaluation note Note Date & Type Note Facility Evaluation note No Information [facility] [employer] Other History general Narrative - Reported Note Date & Type Note Facility History general Narrative - Reported Type Medical History asthma dx at a young age Hospitalization History pneumonia from a sthma - when he was a toddler [employer] Other Reason for referral (narrative) Note Date & Type Note Facility Reason for referral (narrative) Diagnosis 1 Anxiety and depressi on (F41.8) Referral Organization [facility] Referring Provider First Name Dannie Referring Provider Last Name Deon Referring Provider Specialty Family Practice Referred Organization [facility] [place] Referred Address [address] [place], [place],[address] Referred Provider Specialty Psychiatry Referral Priority Routine General Notes Karyna Dumont 06/03/2023 02:13:58 PM > [facility] form faxed to [facility]. pt understands he will be contacted to schedule his initial appt. referral closed as it is for psychiatry/counseling and will not be followed. [employer] Other Reason for visit Narrative Note Date & Type Note Facility Reason for visit Narrative check up, dis cuss multiple issues, see treatment plan for further information [facility] Other Summary Purpose Family History No Family History Records FoundNo Family History Records Found Advance Directives No Advanced Directives Records FoundNo Advanced Directives Records Found Additional Source Comments (unrecognized sect ion and content) No Status Records FoundNo Status Records Found INFORMATION SOURCE (unrecogn ized section and content) DATE CREATED AUTHOR 04/24/2021 [facility] DATE CREATED AUTHOR AUTHOR'S LUCAS BROWN 01/06/2024 [facility] REASON FOR VISIT (unrecogniz ed section [...] BE BASED ON THE PRIMARY CLINICAL RECORDS. [facility] [employer]. provides no warranty or guarantee of the accuracy or completeness of information in this document.
== END 2024-07-19 11:07 | disposition home or self-care (01) ==
LOC: EC 11:06
PROVIDERS: PCP Family Medicine; Visit Provider Orthopaedic Surgery
DX: S62.392D Other fracture of third metacarpal bone, right hand, subsequent encounter for fracture with routine healing (principal)
CPT/HCPCS: 73130